=== PATIENT | female | born 1970 | race Caucasian/White ===

== ENCOUNTER 2017-09-13 10:12 | Inpatient (IN) | payer MEDICARE, MEDICAID ==
[~2017-09-13] VITALS: Ht 165.1 cm
--- NOTE | ~2017-09-13 | WRIGHTHP ---
[place], [place] PATIENT HISTORY AND PHYSICAL EXAM NAME: MANUEL SCHAFER [facility] #: [id number] UNIT #: [id number] ROOM: [facility] DOCTOR: GERRY RENO MD BIRTHDATE: [birth year] DOS: 09/13/2017 HISTORY OF PRESENT ILLNESS: The patient is 47 years old. The patient is not known to me. The patient of Dr. Rasheed, comes in stating that she has been slightly disoriented and confused and has not been able to eat anything for the last days because of sore throat. She denies having any chest pains, palpitations, does not have any fever or chills. Does not have any abdominal pain, nausea or emesis. Because she is unable to eat, she was also not taking her insulin and therefore, her blood sugars were pretty high when she came into the Emergency Room. PAST MEDICAL HISTORY: Significant for last hospitalization in 08/2016. Acute cholecystitis and cholecystectomy was performed at that time in 08/2016. The rest of the diagnoses will be: 1. Major depression. 2. Bipolar disorder. 3. Type 2 diabetes mellitus, insulin-dependent, follows with Dr. Sierra. 4. Chronic back pain with lumbar radiculopathy. MEDICATIONS: She is currently on home medications, are bupropion, Adderall, duloxetine, levothyroxine, Lyrica, Neurontin, lorazepam, ibuprofen, Lipitor. SOCIAL HISTORY: Smoker, denies using any alcohol. PHYSICAL EXAMINATION: GENERAL: The patient is awake and alert and oriented, in no distress. VITAL SIGNS: Blood pressure is 116/67, pulse of 72, respirations 18, temperature 97.8. CHEST: Lungs are clear. HEART: Regular. ABDOMEN: Obese, soft, nontender. EXTREMITIES: Without any edema. NEUROLOGIC: No neurological deficits noticed. LABORATORY DATA: Lactic acid is normal at 1.2. WBC count is 16.6, hemoglobin 14.5. Strep screen is positive. Chest x-ray was unremarkable. Comprehensive, glucose 379, BUN 13, creatinine 0.79, sodium 139, potassium 4.3. ASSESSMENT AND PLAN: 1. The patient who presents with sore throat and elevated white cell count with underlying strep throat. The patient is placed on Augmentin. White cell count has come down to 12.2. 2. Type 2 diabetes mellitus, insulin-dependent, poorly controlled with hypoglycemia from the underlying infection, which is definitely improving. She is getting coverage and is advised to restart the insulin pump and the Victoza. 3. Urinary tract infection has been ruled out. 4. Abnormal LFTs, possibly from the underlying infectious process which need to be followed up as an outpatient with repeat LFTs. 5. Hyponatremia. The sodium level has come up after IV fluids. This could be from poorly controlled diabetes. [place], [place] PATIENT HISTORY AND PHYSICAL EXAM NAME: MANUEL SCHAFER UNIT #: [id number] ROOM: [facility] DOCTOR: GERRY RENO MD BIRTHDATE: [birth year] The patient is stable and can be discharged today. Follow up with Dr. Rasheed as an outpatient. GERRY RENO MD CM:HISPHYS:PATIENT HISTORY AND PHYSICAL EXAMINATION [id number] GERRY RENO MD 09/20/17 1110 interface
[~2017-09-13 10:12] MED LIST: ADDERALL15 MG PO; AMOXICILLIN500 MG PO; ATIVAN1 MG PO; AUGMENTIN 875 M1 TAB PO; BLOOD GLUCOSE1 EACH MC; BUPROPION HCL150 M1 PO; CEFADROXIL500 M1 PO; CLARITIN10 M1 PO; CLINDAMYCIN HC300 MG PO; CYCLOBENZAPRINE10 MG PO; CYCLOBENZAPRINE5 M3 PO; DEXTROAMPH SACC20 M1 PO; DULOXETINE HCL60 MG PO; HYDROCODONE BIT1 T11 PO; IBU800 MG PO; LEVOTHYROXIN0.075 M1 PO; LEVOTHYROXIN0.075 MG PO; LIPITOR40 MG PO; MOTRIN800 MG PO; Motrin,Rufen800 MG PO; NAPROSYN500 MG PO; NEURONTIN800 MG PO; NORCO 5-325 TA1 EACH PO; NOVOLOG10 ML SC; Orphenadrine C100 MG PO; SIMVASTATIN20 MG PO; TOBRADEX 0.1%-0.5 ML OPH; TRAMADOL HCL50 MG PO; TRIMOX500 MG PO; TYLENOL WITH CO1 TA1 PO; VICODIN 5/500 505 MG PO; VISTARIL25 M2 PO; ZITHROMAX250 MG PO; ZOFRAN4 MG PO
[2017-09-13 10:21] VITALS: BP 111/66
[2017-09-13 11:28] LABS: BASO # 0.1 10*3/uL (0.0-0.1); BASO % 0.4 % (0.0-1.0); EOS % 0.1 % (1.0-4.0); HEMATOCRIT 41.7 % (37.0-47.0); HEMOGLOBIN 14.5 g/dl (12.0-16.0); LYMPH % 6.2 % (27.0-41.0); MEAN CELL VOLUME 84.9 fl (81.0-99.0); MEAN CORPUSCULAR HGB 29.5 pg (27.0-31.0); MEAN CORPUSCULAR HGB CONC 34.8 g/dl (33.0-37.0); MEAN PLATELET VOLUME 10.9 fl (9.6-12.3); MONO # 0.9 10*3/uL (0.1-1.0); MONO % 5.6 % (3.0-9.0); NEUT # 14.5 10*3/uL (2.3-7.9); NEUT % 87.4 % (47.0-73.0); PLATELET COUNT AUTOMATED 177 10*3/uL (130-400); RED BLOOD COUNT 4.91 10*6/uL (4.10-5.10); RED CELL DISTRI WIDTH 12.4 % (0-14.5); WHITE BLOOD COUNT 16.6 10*3/uL (4.8-10.8)
[2017-09-13 11:38] LABS: ACT PARTIAL THROMBO TIME 24.7 SECONDS (20.8-31.5)
[2017-09-13 11:42] LABS: ALBUMIN 3.5 gm/dl (3.1-4.5); ALKALINE PHOSPHATASE 246 U/L (45-117); BUN 13 mg/dl (7-24); CHLORIDE 97 mmol/L (98-107); CREATININE 0.89 mg/dL (0.55-1.02); LIPASE 65 U/L (73-393); POTASSIUM 4.3 mmol/L (3.5-5.1); SGOT/AST 54 IU/L (3-35); SGPT/ALT 101 U/L (12-78); SODIUM 129 mmol/L (136-145); TOTAL PROTEIN 7.6 gm/dL (6.4-8.2)
[2017-09-13 11:43] LABS: TROPONIN I < 0.015 ng/ml (<0.045)
[2017-09-13 11:48] LABS: BILIRUBIN NEGATIVE (NEGATIVE); BLOOD 1+ (NEGATIVE); CLARITY CLEAR (CLEAR); COLOR YELLOW (YELLOW); GLUCOSE 3+ (NEGATIVE); KETONE 3+ (NEGATIVE); LEUKO ESTERASE NEGATIVE (NEGATIVE); NITRITE NEGATIVE (NEGATIVE); PH 5.5 (5.0-9.0); UROBILINOGEN 0.2 E.U./dl (0.2-1.0)
[2017-09-13 11:59] LABS: EPITHELIAL CELLS 0-2; WBC 0-2 wbc/hpf (0-5)
[2017-09-13 12:40] VITALS: BP 123/68
[2017-09-13 12:45] VITALS: BP 123/68
--- NOTE | 2017-09-13 13:55 | NUR ---
Time: 1239 A 47 year old FEMALE admitted to 5E under services of GERRY GRAHAM MD. Pt. arrived via bed from ER. Chief complaint: METABOLIC ENCEPHALOPATHY, UNCONTROLLED DIABETES MELLITUS. SARA RAMSEY
[2017-09-13] MEDS ORDERED: LYRICA100 M1 PO ×2 (14:46→20:54)
[2017-09-13] MEDS ORDERED: VICTOZA 3-PAK6 MG/ML SC (14:47)
[2017-09-13] MEDS ORDERED: NORCO 5-325 TA1 EACH PO (14:47)
[2017-09-13] MEDS ORDERED: BUPROPION PO (14:57)
[2017-09-13] MEDS ORDERED: CYMBALTA60 MG PO (15:00)
--- NOTE | 2017-09-13 15:47 | NUR ---
SPOKE WITH DR RENO. RECEIVED ORDERS FOR ADMISSION. NEURONTIN, CYMBALTA, ADDERALL, AND BUPROPION CONTINUED. SLIDING SCALE ORDERS AND Q4H BSCHECKS ORDERED, AND ADA 1800 DIET. NS @100/HR AND ROCEPHIN 1GM DAILY ORDERED.
[2017-09-13 16:00] VITALS: BP 127/67
--- NOTE | 2017-09-13 16:43 | NUR ---
PT RECEIVED NORCO FOR PAIN IN THROAT RATED 9/10.
--- NOTE | 2017-09-13 17:30 | NUR ---
PATIENT STATES THAT NORCO HELPED TAKE EDGE OFF PAIN.
[2017-09-13 20:00] VITALS: BP 104/54
--- NOTE | 2017-09-13 20:30 | NUR ---
SITTING AT BEDSIDE, NO ACUTE DISTRESS NOTED. RESPIRATIONS EASY. LUNGS DIMINISHED, CLEAR. PULSE OX 98% RA. IV FLUIDS INFUSING PER ORDER. CALL LIGHT WITHIN REACH. NO VOICED COMPLAINTS.
[2017-09-13] MEDS ORDERED: LEVOTHYROXINE75 MCG PO (20:55)
--- NOTE | 2017-09-13 23:51 | NUR ---
SLEEPING, AWAKENS AND C/O BACK PAIN RATING A 6, CHRONIC IN NATURE. REQUESTED AND RECEIVED NORCO PER PRN ORDER. CALL LIGHT WITHIN REACH. WILL MONITOR FOR EFFECTIVENESS
[2017-09-14] VITALS: BP 118/54
--- NOTE | 2017-09-14 01:00 | NUR ---
EARLIER NORCO APPEARS EFFECTIVE. SLEEPING. RESPIRATIONS EASY. VSS. CALL LIGHT WITHIN REACH
--- NOTE | 2017-09-14 06:00 | NUR ---
SLEPT THROUGHOUT NIGHT WITH NO DISTRESS NOTED. RESPIRATIONS EASY. VSS. CALL LIGHT WITHIN REACH. NO VOICED COMPLAINTS THIS SHIFT
[2017-09-14 07:03] LABS: BASO % 0.2 % (0.0-1.0); EOS # 0.2 10*3/uL (0.0-0.4); EOS % 1.3 % (1.0-4.0); HEMATOCRIT 37.3 % (37.0-47.0); HEMOGLOBIN 12.9 g/dl (12.0-16.0); LYMPH # 1.6 10*3/uL (1.3-4.4); LYMPH % 12.7 % (27.0-41.0); MEAN CELL VOLUME 84.6 fl (81.0-99.0); MEAN CORPUSCULAR HGB 29.3 pg (27.0-31.0); MEAN CORPUSCULAR HGB CONC 34.6 g/dl (33.0-37.0); MEAN PLATELET VOLUME 10.5 fl (9.6-12.3); MONO # 1.1 10*3/uL (0.1-1.0); MONO % 8.8 % (3.0-9.0); NEUT # 9.3 10*3/uL (2.3-7.9); NEUT % 76.5 % (47.0-73.0); PLATELET COUNT AUTOMATED 175 10*3/uL (130-400); RED BLOOD COUNT 4.41 10*6/uL (4.10-5.10); RED CELL DISTRI WIDTH 12.6 % (0-14.5); WHITE BLOOD COUNT 12.2 10*3/uL (4.8-10.8)
--- NOTE | 2017-09-14 07:30 | NUR ---
ASSUMED CARE OF PT AT THIS TIME, RESPS EASY AND NONLABORED WITH NO S/S OF DISTRESS CALL LIGHT WITH IN REACH
[2017-09-14 07:34] LABS: BUN 15 mg/dl (7-24); CHLORIDE 105 mmol/L (98-107); CREATININE 0.69 mg/dL (0.55-1.02); POTASSIUM 3.9 mmol/L (3.5-5.1); SODIUM 137 mmol/L (136-145)
[2017-09-14 08:00] VITALS: BP 116/67
--- NOTE | 2017-09-14 08:00 | NUR ---
PT C/O BACK PAIN RATING 4/10 REQUESTING AND ADMINSITERED NORCO DE PRN PER ORDERS, WILL MONITOR EFFECTS, CALL LIGHT WITH IN REACH
--- NOTE | 2017-09-14 08:30 | NUR ---
Copier Repair Technician in to talk to patient. Patient states lives at HOME with FRIENDS. There are "MANY" steps in the home. Physician: DR ABREU Pharmacy: [facility] Home health services: NONE Patient's level of ADLs: MINIMAL ASSIST Patient has working utilities: YES DME: INSULIN PUMP Follow-up physician's appointment after d/c: PREFERS TO MAKE HER OWN APPT Does patient want to access PORTAL?: Discharge plan HOME. HARRISON DESIR
[2017-09-14] MEDS ORDERED: AUGMENTIN 875875 MG PO (09:04)
--- NOTE | 2017-09-14 10:47 | NUR ---
Discharge instructions reviewed with patient/family. Patient receptive and verbalizes understanding. Follow-up care arranged. Written instructions given to patient/family. DARIN BRADLEY
== END 2017-09-14 10:47 | disposition home or self-care (01) | DRG 152 ==
LOC: ED 10:12 → EDHOLD 12:03 → 5E 12:03
PROVIDERS: Emergency Medicine; ADMIT Internal Medicine
DX: J02.0 Streptococcal pharyngitis (principal); G93.41 Metabolic encephalopathy; E87.1 Hypo-osmolality and hyponatremia; E11.65 Type 2 diabetes mellitus with hyperglycemia; R94.5 Abnormal results of liver function studies; F41.9 Anxiety disorder, unspecified; E66.9 Obesity, unspecified; F17.200 Nicotine dependence, unspecified, uncomplicated; M54.9 Dorsalgia, unspecified; G89.29 Other chronic pain; F31.9 Bipolar disorder, unspecified; Z91.041 Radiographic dye allergy status; Z91.018 Allergy to other foods; Z79.899 Other long term (current) drug therapy; Z79.4 Long term (current) use of insulin; Z98.51 Tubal ligation status; Z98.891 History of uterine scar from previous surgery; Z80.8 Family history of malignant neoplasm of other organs or systems; Z90.49 Acquired absence of other specified parts of digestive tract; Z68.29 Body mass index [BMI] 29.0-29.9, adult

== ENCOUNTER 2017-12-17 19:11 | Emergency (ER) | payer MEDICARE, MEDICAID ==
[~2017-12-17] VITALS: Ht 165.1 cm; Wt 80.7 kg
[2017-12-17 19:11] VITALS: BP 124/71
[~2017-12-17 19:11] MED LIST changes: +AUGMENTIN 875875 MG PO; +BUPROPION PO; +CYMBALTA60 MG PO; +LEVOTHYROXINE75 MCG PO; +LYRICA100 M1 PO; +VICTOZA 3-PAK6 MG/ML SC
[2017-12-17] MEDS ORDERED: CHLORZOXAZONE500 M2 PO (19:54)
[2017-12-17] MEDS ORDERED: CLINDAMYCIN150 MG PO (20:31)
== END 2017-12-17 20:34 | disposition home or self-care (01) ==
LOC: ED 19:11
DX: L02.11 Cutaneous abscess of neck (principal); Z98.51 Tubal ligation status; Z98.890 Other specified postprocedural states; Z79.899 Other long term (current) drug therapy; Z91.013 Allergy to seafood

== ENCOUNTER 2018-03-10 19:27 | Inpatient (IN) | payer MEDICARE, MEDICAID ==
[~2018-03-10] VITALS: Ht 165.1 cm; Wt 89.9 kg
--- NOTE | ~2018-03-10 | PR ---
[place], [place] PROGRESS NOTE NAME: MANUEL SCHAFER UNIT #: [id number] ROOM: 506 DOCTOR: GERRY RENO MD BIRTHDATE: [birth year] DOS: Fill in the blank with Dr. Man. GERRY RENO MD CM:PNTRANS [id number] GERRY RENO MD 03/23/18 1618 interface
--- NOTE | ~2018-03-10 | PR ---
[place], [place] PROGRESS NOTE NAME: MANUEL SCHAFER [facility] #: [id number] UNIT #: [id number] ROOM: 506 DOCTOR: GERRY RENO MD BIRTHDATE: [birth year] DOS: SUBJECTIVE: The patient is not having any new complaints. OBJECTIVE: VITAL SIGNS: Graphic trend shows a pressure 96/36, pulse of 82, respirations 18, temperature 98.3. LUNGS: Clear. HEART: Regular. ABDOMEN: Soft. EXTREMITIES: Without any edema. ASSESSMENT AND PLAN: Acute exacerbation of chronic obstructive pulmonary disease, improved and stable. The patient is not on any IV steroids or antibiotics here. The plan therefore is to discharge her to home today to follow up as an outpatient with the PCP. GERRY RENO MD CM:PNTRANS [id number] GERRY RENO MD 03/12/18 1356 interface
--- NOTE | ~2018-03-10 | WRIGHTHP ---
[place], [place] PATIENT HISTORY AND PHYSICAL EXAM NAME: MANUEL SCHAFER [facility] #: [id number] UNIT #: [id number] ROOM: 506 DOCTOR: CRISTINE ABREU MD BIRTHDATE: [birth year] DOS: 03/10/2018 HISTORY OF PRESENT ILLNESS: The patient is a 48-year-old female with a past medical history of: 1. Uncontrolled type 2 diabetes mellitus, insulin requiring. The patient follows up with Dr. Sierra, world language teacher. 2. Chronic back pains and lumbar spondylosis. 3. Bipolar disorder. 4. Major depression, recurrent, moderate. 5. Nicotine smoke dependence, 1 pack of cigarettes a day. 6. Hypothyroidism. 7. Attention deficit disorder. The patient presented to the Emergency Department with increasing complaints of shortness of breath, wheezing, cough and was diagnosed as having acute exacerbation of asthma and COPD. The patient still smokes 1 pack of cigarettes a day. After initial treatment with Solu-Medrol, oxygen, and antibiotic, she was recommended for admission on a monitored bed. The patient says that her breathing started to improve with treatment and no chest pain, no other GI or urinary symptoms. REVIEW OF SYSTEMS: LUNGS: Significant wheezing and shortness of breath. GASTROINTESTINAL: No nausea, vomiting, diarrhea, constipation. CARDIOVASCULAR: No chest pains or palpitations. FAMILY HISTORY: Noncontributory. SOCIAL HISTORY: The patient still smokes 1 pack of cigarettes a day. Denies any alcohol or drug abuse. HOME MEDICATIONS: Ibuprofen, Lyrica, levothyroxine, amphetamine, Cymbalta. ALLERGIES: IODINE and SHRIMP. PHYSICAL EXAMINATION: GENERAL: Alert and oriented times 3, in no visible distress. HEENT AND NECK: Extraocular movements are intact. Sclerae are anicteric. Oral mucosa is moist and clean. No obvious facial weakness. Neck is supple without any lymphadenopathy. No thyromegaly. No JVD. No carotid arterial bruits. LUNGS: Decreased breath sounds and significant expiratory wheezing all over. CARDIOVASCULAR SYSTEM: Heart rate is regular in rate and rhythm. S1 and S2 normally audible. No significant murmur or any other abnormal cardiac sounds. ABDOMEN: Soft, nontender. No obvious organomegaly. Bowel sounds are present. No obvious herniation. EXTREMITIES: Without significant cyanosis or edema. Warm to touch. CENTRAL NERVOUS SYSTEM: Alert and oriented x 3. Cranial nerves II-XII are intact. Speech is normal. The patient is able to move all extremities. Normal muscle strength. Deep tendon reflexes are equal on both sides. Plantars were downgoing. [place], [place] PATIENT HISTORY AND PHYSICAL EXAM NAME: MANUEL SCHAFER UNIT #: [id number] ROOM: 506 DOCTOR: CRISTINE ABREU MD BIRTHDATE: [birth year] IMPRESSION: 1. Acute asthmatoid wheezing and acute exacerbation of chronic obstructive pulmonary disease with continued nicotine abuse. The patient with acute respiratory failure, being treated with oxygen, bronchodilators, inhaled Pulmicort and IV Solu-Medrol, which is being stopped because of her elevated sugars. The patient's breathing has started improving, but she still has significant amount of wheezing and decreased breath sounds. I will closely monitor her on a step-down monitored bed. 2. Uncontrolled type 2 diabetes mellitus with poor compliance with diet and treatment. Also, the patient is a brittle diabetic and uses insulin pump given to her by world language teacher, Dr. Sierra. The patient will continue to use insulin pump and I am discontinuing her Solu-Medrol, instead just treat her with bronchodilators, oxygen and inhaled corticosteroids. The patient's breathing is already improving. 3. Major depression, recurrent, moderate, being treated with Cymbalta. 4. Bipolar disorder. The patient will be continued on Wellbutrin. 5. Attention deficit disorder, treated with amphetamine, which is being continued. 6. Nicotine smoke dependence. The patient started on nicotine patch and she is being encouraged to stop smoking cigarettes. 7. Chronic back pains and lumbar spondylosis, treated with ibuprofen. CRISTINE ABREU MD CM:HISPHYS:PATIENT HISTORY AND PHYSICAL EXAMINATION [id number] CRISTINE ABREU MD 03/11/18 1315 interface
--- NOTE | ~2018-03-10 | DS ---
[place], [place] DISCHARGE SUMMARY NAME: MANUEL SCHAFER [facility] #: [id number] UNIT #: [id number] ROOM: 506 DOCTOR: GERRY RENO MD BIRTHDATE: [birth year] DOS: 03/12/2018 DISCHARGE DIAGNOSES: 1. Acute exacerbation of chronic obstructive pulmonary disease. 2. Steroid-induced hyperglycemia. 3. Morbid cigarette smoker. 4. Major depression, moderate, recurrent. 5. Bipolar disorder. 6. Attention deficit disorder. HOSPITAL COURSE: This patient is 48 years old, comes in with complaints of difficulty breathing. Please refer to H and P dictated by Dr. Queen for details. Blood sugar went up with steroids, so the IV steroids were discontinued. The patient was not placed on any other medications other than Pulmicort. She was not given any p.o. steroids. She was given IV antibiotics with Rocephin. This morning, the patient is stable and is not having any complaints, so the plan is to discharge her to home today. Follow up as an outpatient with Dr. Man. DISCHARGE MEDICATIONS: Breathing treatments q.4 hours and then home medications along with Augmentin 875 twice a day for 7 days. GERRY RENO MD CM:DISCHARG [id number] GERRY RENO MD 03/23/18 1140 interface
[~2018-03-10 19:27] MED LIST changes: +CHLORZOXAZONE500 M2 PO; +CLINDAMYCIN150 MG PO
[2018-03-10 19:29] VITALS: BP 125/91
[2018-03-10 20:27] LABS: BASO # 0.1 10*3/uL (0.0-0.1); EOS # 0.2 10*3/uL (0.0-0.4); EOS % 3.9 % (1.0-4.0); HEMATOCRIT 46.6 % (37.0-47.0); HEMOGLOBIN 15.9 g/dl (12.0-16.0); LYMPH # 2.5 10*3/uL (1.3-4.4); LYMPH % 40.5 % (27.0-41.0); MEAN CORPUSCULAR HGB 29.3 pg (27.0-31.0); MEAN CORPUSCULAR HGB CONC 34.1 g/dl (33.0-37.0); MEAN PLATELET VOLUME 10.6 fl (9.6-12.3); MONO # 0.5 10*3/uL (0.1-1.0); MONO % 8.4 % (3.0-9.0); NEUT # 2.9 10*3/uL (2.3-7.9); PLATELET COUNT AUTOMATED 213 10*3/uL (130-400); RED BLOOD COUNT 5.42 10*6/uL (4.10-5.10); WHITE BLOOD COUNT 6.2 10*3/uL (4.8-10.8)
[2018-03-10 20:39] LABS: BUN 17 mg/dl (7-24); CHLORIDE 103 mmol/L (98-107); CREATININE 0.99 mg/dL (0.55-1.02); POTASSIUM 3.8 mmol/L (3.5-5.1); SODIUM 140 mmol/L (136-145)
[2018-03-10 21:34] VITALS: BP 116/71
[2018-03-10 22:30] VITALS: BP 120/76
[2018-03-10] MEDS ORDERED: IBU800 MG PO (22:31)
[2018-03-10] MEDS ORDERED: NORCO 5-325 TA1 EACH PO (22:32)
[2018-03-10] MEDS ORDERED: Wellbutrin Sr100 MG PO (22:35)
[2018-03-10] MEDS ORDERED: LIPITOR40 MG PO (22:36)
[2018-03-10] MEDS ORDERED: VICTOZA 2-0.6 MG/0.1 SC (22:37)
[2018-03-10] MEDS ORDERED: NOVOLOG100 UNIT/1 SQ (23:18)
[2018-03-10] MEDS ORDERED: CARTRIDGE STAM1 EACH SQ (23:19)
[2018-03-11] VITALS: BP 119/65
[2018-03-11 08:00] VITALS: BP 110/64
[2018-03-11 12:00] VITALS: BP 128/68
[2018-03-11 16:00] VITALS: BP 114/78
[2018-03-11 20:00] VITALS: BP 126/65
[2018-03-12 00:31] VITALS: BP 96/36
[2018-03-12 08:00] VITALS: BP 118/53
[2018-03-12] MEDS ORDERED: DUONEB 3 MG/3 ML3 M1 NEB (08:05)
== END 2018-03-12 11:24 | disposition home or self-care (01) | DRG 193 ==
LOC: ED 19:27 → EDHOLD 21:00 → 5E 21:00
PROVIDERS: Hospitalist
DX: J18.9 Pneumonia, unspecified organism (principal); J96.00 Acute respiratory failure, unspecified whether with hypoxia or hypercapnia; J44.0 Chronic obstructive pulmonary disease with (acute) lower respiratory infection; F33.1 Major depressive disorder, recurrent, moderate; J45.901 Unspecified asthma with (acute) exacerbation; E11.65 Type 2 diabetes mellitus with hyperglycemia; J44.1 Chronic obstructive pulmonary disease with (acute) exacerbation; F41.9 Anxiety disorder, unspecified; M47.896 Other spondylosis, lumbar region; E03.9 Hypothyroidism, unspecified; F17.210 Nicotine dependence, cigarettes, uncomplicated; F98.8 Other specified behavioral and emotional disorders with onset usually occurring in childhood and adolescence; T38.0X5A Adverse effect of glucocorticoids and synthetic analogues, initial encounter; Z79.84 Long term (current) use of oral hypoglycemic drugs; Z91.041 Radiographic dye allergy status; Z98.51 Tubal ligation status; Z88.8 Allergy status to other drugs, medicaments and biological substances; Z98.891 History of uterine scar from previous surgery; Z80.9 Family history of malignant neoplasm, unspecified; Y92.89 Other specified places as the place of occurrence of the external cause; Z91.11 Patient's noncompliance with dietary regimen

== ENCOUNTER → 2018-03-16 | Outpatient (CLI) | payer MEDICARE, MEDICAID ==
[~2018-03-16] MED LIST changes: +CARTRIDGE STAM1 EACH SQ; +DUONEB 3 MG/3 ML3 M1 NEB; +NOVOLOG100 UNIT/1 SQ; +VICTOZA 2-0.6 MG/0.1 SC; +Wellbutrin Sr100 MG PO
== END | disposition home or self-care (01) ==
LOC: RAD 15:26
DX: J44.9 Chronic obstructive pulmonary disease, unspecified (principal); R53.83 Other fatigue

== ENCOUNTER 2018-07-19 16:12 | Inpatient (IN) | payer MEDICARE, MEDICAID ==
[~2018-07-19] VITALS: Ht 167.6 cm; Wt 86.7 kg
--- NOTE | ~2018-07-19 | EKG ---
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
--- NOTE | ~2018-07-19 | CON ---
[place], [place] REPORT OF CONSULTATION [id number] UN[facility] #: [id number] ROOM: 526 DOCTOR: DOYLE SILVA MD BIRTHDATE: [birth year] DOS: 07/20/2018 CRITICAL CARE EVALUATION AND MANAGEMENT CONSULTATION REQUESTED BY: Dr. Queen. HISTORY OF PRESENT ILLNESS: History is extremely limited for this patient because of the patient's inability to give any history as the patient noted drowsy with change in mental status. History contained documented essentially is the assessment by the other physician notes and the nurse's notes. A 48-year-old white female patient with history of type 1 insulin-dependent diabetes mellitus. The patient has been treated with insulin pump. The insulin pump has not been working. She has been brought to the hospital with severe confusional status with increased somnolence. Her sugar has been running high as per family members. As per note which was done in the Emergency Room, the patient has not been listening to the family members of following any instructions about that. The patient has been also noted symptoms of nausea, vomiting, and progressive increased lethargy occurring for the past couple of days, which has been noted worsening. She presented to the Emergency Room. She has been assessed by the ER physician and noted with the diagnosis of acute diabetic ketoacidosis. The patient was started on the treatment for that. The pH was noted 7.25 at that time and the anion gap was calculated as 26 with albumin corrected. The patient was also noted positive serum ketones. The arterial blood gas, pH was noted 7.00. She has been hospitalized for further medical management with acute diabetic ketoacidosis. The patient has received intravenous normal saline initial couple of hours and later on fluid switched to D5 rather normal saline with potassium chloride and later on switched to the D5W infusion, potassium chloride supplementation according to protocol. The patient was noted with improvement in the venous pH with improvement in the metabolic acidosis and diabetic ketoacidosis with improvement in the anion gap. The patient still remains lethargic and quickly fall asleep, upon vocal commands that she has been assessed this morning, she has not been able to give me any history. She does wake up and answer question with couple of words and then quickly falls asleep. Does not have signs of respiratory distress this morning. REVIEW OF SYSTEMS: Review of systems cannot be completed since the patient was noted with severe lethargy with the sleepiness this morning of assessment. PAST MEDICAL HISTORY: 1. The patient was noted with type 1 diabetes mellitus. 2. Recent infection with a prescription of Augmentin noted; however the details were unknown. 3. History of hypercholesterolemia. 4. Hypothyroidism. 5. History reported for ADHD and bipolar disorder in the nurse's notes. PAST SURGICAL HISTORY: Reported as: [place], [place] REPORT OF CONSULTATION NAME: MANUEL SCHAFER UNIT #: [id number] ROOM: 526 DOCTOR: BALBINA POPE MD,DOYLE BIRTHDATE: [birth year] 1. Cholecystectomy. 2. Tubal ligation. 3. Three C-sections. FAMILY HISTORY: The history about the parents was unknown. CURRENT MEDICATIONS: Administered noted as use of Cymbalta, levothyroxine, and intravenous Rocephin. Intravenous flow for the patient was given as potassium chloride added in the D5W. PHYSICAL EXAMINATION: GENERAL: A 48-year-old white female. She was noted significantly lethargic at this time open her eyes, but quickly falls asleep. VITAL SIGNS: Height were recorded with the nursing staff with height of 5 feet 6 inches, weight 197 pounds, BMI 31.8. Temperature noted 101 degree Fahrenheit, normal temperature. The respiratory rate range between 14-18, heart rate 97, blood pressure 106/61-127/67. Pulse oxygen saturation on room air noted 98% saturation. HEENT: Limited exam. However, the oral mucosa noted significantly dry still at the present time. Head was atraumatic. Eyes nonicterus. CARDIOVASCULAR: S1, S2 is audible. LUNGS: Without any wheezing or crackles at present time. ABDOMEN: Soft, nontender. Bowel sounds are present. EXTREMITIES: The patient noted without acute edema. CENTRAL NERVOUS SYSTEM: Change in mental status. Further examination could not be performed; however, the patient noted spontaneous movement in upper and the lower extremities. MUSCULOSKELETAL: Without acute deformity. VISIBLE SKIN: No lesions or rashes. LABORATORY DATA: The patient's arterial blood gas on 07/19/2018, pH of 7.00, pCO2 of 17.5, pO2 of 140. Lactic acid 2.7 followup 1.4. The ketone level is noted in the blood yesterday at 116 dilution. Chest x-ray that was done was noted first without any acute infiltration secondary multilumen catheter inserted successfully. The patient has been venous access yesterday after admission to Intensive Care Unit admission. CMP for the patient, glucose of 366, BUN 41, creatinine 1.96, sodium 134, and potassium was normal, CO2 was 5. Magnesium 2.5. PT/PTT that was done yesterday was normal. CBC that was done yesterday, WBC count 21.4, hemoglobin and hematocrit was normal. BMP that was repeated at 2133 hours, glucose of 216, BUN 44, creatinine 1.83, CO2 was 9. Anion gap calculated at that time with anion gap was noted as 28. The venous pH that was done this morning, the patient at 09:52 was 7.30, alcohol noted less than 3, which I ordered the urinary drug screen was obtained was noted greater than 1000 of amphetamines, which the patient is on home medication. The BMP was noted this morning, sodium 138, chloride 111, anion gap between 12-14. IMPRESSION: 1. The patient who has been noted persistent mental status changes with the resolution of acute diabetic ketoacidosis as well as acute on chronic injury. 2. The patient with possibility of diabetic nephropathy be considered [place], [place] REPORT OF CONSULTATION [facility]: [facility] [id number] UN[facility] #: [id number] ROOM: 526 DOCTOR: BALBINA POPE MD,[facility] BIRTHDATE: [birth year] longstanding type 1 diabetes mellitus. 3. Urinary tract infection. The patient was possibly considered in fact with lack of insulin usage resulting in diabetic ketoacidosis. 4. Rule out cause of mental status change including consideration for the acute viral or bacterial meningitis. 5. History of hypothyroidism as well. PLAN OF MANAGEMENT: The patient could be resumed her insulin long-acting. The CT scan of the head will be obtained negative, proceed with the lumbar puncture, coverage started for the medical management of the meningitis at her age with the use of vancomycin, Rocephin 1 gram b.i.d., and also acyclovir. Monitoring other status after the lumbar puncture, a decision about the change in antibiotic will be done. Monitor all the culture results, which has been taken during this hospitalization. Oral intubation could be started as long would be noted awake. The patient follow vocal commands and thirsty. Intravenous fluid will be adjusted according to the need. Monitoring the urine output closely as well. Urine output was noted essentially 650 mL in the last 12 hours with close monitoring to be done to maintain a good urinary output. Avoid any fluid overload because of the possibly chronic kidney disease. Usual care, other supportive plan of therapy, care plan and management. Additional changes in treatment will be made based on progression of the illness. The DVT prophylaxis will be given in the form of the Lovenox. Discontinue Cymbalta that could also resulting in increased drowsiness as well and could be resumed after the patient achieves normal mental status. Total time in pulmonary critical evaluation and management was 50 minutes. DOYLE MORTENSEN MD CM:CONSTR:REPORT OF CONSULTATION 1301 08/09/18 0829 interface
--- NOTE | ~2018-07-19 | PR ---
[place], [place] PROGRESS NOTE NAME: MANUEL SCHAFER [facility] #: [id number] UNIT #: [id number] ROOM: [facility] DOCTOR: BALBINA POPE MD,DOYLE BIRTHDATE: [birth year] DOS: 07/21/2018 PULMONARY PROGRESS NOTE SUBJECTIVE: The patient was noted comfortable with gradual improvement and the wakefulness noted. The patient was not noted fully probably at the baseline, but shows improvement in the mental status. The patient had lumbar puncture done yesterday that was noted without any evidence or suspicion of meningitis. She has been continuing antibiotics from yesterday. The acyclovir was discontinued per recommendation of the Infectious Disease specialist. She has been started on insulin coverage as well. The patient stated that she is hungry and was asking for food. She was also complaining of thirst. Intravenous fluids continued for the patient from yesterday because of lack of oral intake. The patient without any diabetic ketoacidosis in the last 18 hours. The acute kidney injury was noted secondary to diabetic ketoacidosis, dehydration and intravascular volume depletion. Prerenal also resolved. REVIEW OF SYSTEMS: Otherwise noted as normal. OBJECTIVE: VITAL SIGNS: Normal temperature, respiratory rate 12, heart rate of 86, blood pressure 160/76, pulse ox saturation on room air 98% saturation. HEENT: Head was atraumatic. Eyes nonicterus. NECK: Supple. CARDIOVASCULAR: S1, S2 is audible. LUNGS: Without any wheeze or crackles. ABDOMEN: Soft, nontender. EXTREMITIES: Without any acute edema. VISIBLE SKIN: No lesions or rashes. CENTRAL NERVOUS SYSTEM: Noted fully intact. The patient noted awake, alert, oriented x 3. LABORATORY DATA: BMP today; glucose 324, BUN and creatinine was normal. Impedance pH was 3.9, which was normal. Culture of the CSF for the patient noted no bacterial growth. Influenza A and B, nasal washing antigens were noted as negative. A total of 9 mL of lumbar puncture fluid was sent to the lab. Only 5 WBCs were noted. A 2000 RBCs were seen. Glucose was elevated at 159. Protein noted in the normal range. IMPRESSION: 1. Change in mental status, most likely metabolic encephalopathy. There was no clinical suspicion of acute meningitis. CT scan of the head, which was also completed yesterday without any structural abnormalities. 2. History of type 1 diabetes mellitus as well with nonadherence with the treatment and possible malfunction of the insulin pump. PLAN OF TREATMENT: The coverage of the blood glucose will be continued with the short-acting insulin. The patient could be started on long-acting insulin at this time. Oral intake as tolerated will be continued. Monitor mental status. Based on the current assessment, the patient does not have any signs of sepsis [place], [place] PROGRESS NOTE NAME: MANUEL SCHAFER UNIT #: [id number] ROOM: [facility] DOCTOR: BALBINA POPE MD,DOYLE BIRTHDATE: [birth year] with meningitis. All the antibiotic will be completely discontinued. Mistry catheter was ordered to be removed. Intravenous fluids were completely discontinued. Monitor for any additional temperature spikes and reassessment at that time and consideration of antibiotic if necessary. Viral syndrome would be considered causing the temperature elevation for this patient, which seemed to be resolving. DOYLE MORTENSEN MD CM:PNTRANS 1302 DOYLE POPE MD 07/22/185 interface
--- NOTE | ~2018-07-19 | PR ---
[place], [place] PROGRESS NOTE NAME: MANUEL SCHAFER [facility] #: [id number] UNIT #: [id number] ROOM: [facility] DOCTOR: CRISTINE ABREU MD BIRTHDATE: [birth year] DOS: 07/22/2018 SUBJECTIVE: The patient is starting to feel better. She is alert and oriented and starting to get stronger. OBJECTIVE: VITAL SIGNS: Blood pressure 135/84, heart rate 78 beats per minute, breathing 20 times per minute, temperature 98.5 degrees Fahrenheit. GENERAL APPEARANCE: The patient is alert and oriented x 3, in no visible distress. HEENT AND NECK: Exam within normal limits. CARDIOVASCULAR SYSTEM: Heart rate is regular in rate and rhythm. S1 and S2 normally audible. LUNGS: Clear to auscultation. ABDOMEN: Soft, nontender. No obvious organomegaly. Bowel sounds are present. EXTREMITIES: Without significant cyanosis or edema. IMPRESSION: 1. The patient who presented with diabetic ketoacidosis and remains in the ICU, is now being transferred to a step-down unit because she is feeling better. Her blood sugars are now ranging between 180 to as high as 410, but her diabetic ketoacidosis has completely resolved. I am starting her on 50 units of Lantus insulin and her insulin pump is at her home, she is not using it. 2. The patient with mental status change from acidosis and diabetic ketoacidosis has resolved. She is feeling much better. 3. The patient's attention deficit disorder, uses Adderall. 4. Major depression, recurrent, moderate, treated and controlled with Cymbalta. 5. Generalized weakness. The patient working with OT and PT now. CRISTINE ABREU MD CM:PNTRANS 29 [phone] CRISTINE ABREU MD 07/22/181856 interface
--- NOTE | ~2018-07-19 | CON ---
[place], [place] REPORT OF CONSULTATION NAME: [facility] [id number] UN[facility] #: [id number] ROOM: [facility]- DOCTOR: SERGE VIZCAINO DO BIRTHDATE: [birth year] DOS: PULMONARY CRITICAL CARE EVALUATION REASON FOR CONSULTATION: Diabetic ketoacidosis and metabolic encephalopathy. HISTORY OF PRESENT ILLNESS: This is a 48-year-old female who presented to [facility] after increased lethargy and nausea and vomiting. The patient's family came and saw her and noted she was not acting herself and decided to call EMS and have her brought to the hospital. In the ER, she was found to be in DKA. Central line was placed in the ER and insulin drip was started. The patient is known to be noncompliant diabetic, occasionally having very high blood sugars. The patient was admitted to the ICU for further management and Critical Care was consulted. REVIEW OF SYSTEMS: Could not be completed due to the patient's mental status at this time. PAST MEDICAL HISTORY: 1. Insulin-dependent diabetes. 2. COPD. 3. Tobacco abuse, current smoker. 4. Major depression, bipolar and adult ADHD. 5. Hypothyroidism. SOCIAL HISTORY: The patient is a smoker according to her sister. The patient's UDS was positive for amphetamines HOME MEDICATIONS: 1. Atorvastatin 40. 2. Bupropion 450 mg. 3. Dextroamphetamine 20 mg b.i.d. 4. Duloxetine 60 mg per day. 5. Ibuprofen 800 mg t.i.d. p.r.n. 6. Levothyroxine 75 mcg per day. 7. Claritin 10 mg per day. 8. Lyrica 100 mg q. 8 hours. 9. Victoza 1.8 mg subcutaneous daily. 10. Insulin pump. PHYSICAL EXAMINATION: VITAL SIGNS: Temperature 97.6, pulse rate 95, respiratory rate 15, blood pressure 115/65, pulse oximetry 98% on room air. GENERAL: A 48-year-old female, in moderate distress, arousable. LUNGS: Diminished breath sounds bilaterally. No rales, rhonchi or wheezes. HEART: Regular rate and rhythm. No murmurs. ABDOMEN: Obese, soft, nontender. EXTREMITIES: No cyanosis, edema or erythema. NEUROLOGIC: The patient follows commands, but does not answer questions appropriately. The patient is unable to tell us where she is. No obvious [place], [place] REPORT OF CONSULTATION NAME: MANUEL SCHAFER [facility]: [id number] UNIT #: [id number] ROOM: [facility] DOCTOR: SERGE VIZCAINO DO BIRTHDATE: [birth year] neurologic deficits. ASSESSMENT AND PLAN: 1. Diabetic ketoacidosis. The patient is on insulin drip that is being titrated off and subcutaneous insulin will be started as appropriately. The patient's fluids will be administered. We will switch to D5 half normal saline until the patient is eating. 2. Metabolic encephalopathy. The patient had a head CT this morning that was negative for acute pathology. The patient will go for a lumbar puncture to rule out meningitis versus encephalitis. The patient will be started on ceftriaxone 1 gram b.i.d., vancomycin pharmacy to dose and acyclovir pharmacy to dose. Infectious Disease will be consulted for further management. 3. Urinalysis positive for urinary tract infection. Urine culture pending. 4. The patient will be given BiPAP at night and while sleeping. Samy Vizcaino DO DOYLE MORTENSEN MD CM:CONSTR:REPORT OF CONSULTATION 1637 07/20/18 1925 interface
--- NOTE | ~2018-07-19 | WRIGHTHP ---
[place], [place] PATIENT HISTORY AND PHYSICAL EXAM NAME: MANUEL SCHAFER [facility] #: [id number] UNIT #: [id number] ROOM: [facility] DOCTOR: GERRY RENO MD BIRTHDATE: [birth year] DOS: 07/19/2018 HISTORY OF PRESENT ILLNESS: The patient is 48 years old, known to me, patient of Dr. Queen, was brought into the Emergency Room yesterday with complaints of increasing nausea, vomiting and confusion. She apparently got a flu shot 5 days prior to this and then family thought it was just a viral illness. She has not been eating anything for the last 2-3 days, but was still getting insulin, using the insulin pump. She was sleeping most of the time and the family found it very difficult to arouse her. PAST MEDICAL HISTORY: Significant for: 1. Type [address] Dey and is on an insulin pump. 2. COPD. 3. Continued nicotine abuse. 4. Major depression, moderate, recurrent. 5. Bipolar disorder. 6. Attention deficit disorder. MEDICATIONS: That she is currently on are: Atorvastatin 40 daily, bupropion 450 mg daily, Adderall 20 b.i.d., duloxetine 60 daily, ibuprofen 800 t.i.d., levothyroxine 75 mcg, loratadine 10 daily, Lyrica 100 mg q. 8 and Victoza 1.8 subcutaneous insulin pump. SOCIAL HISTORY: Smokes about a pack of cigarettes. Denies using any alcohol. Lives with her friend. Children are grown. She is not . Most of the history is obtained from her sister who was in the room. PHYSICAL EXAMINATION: ITAL SIGNS: Graphic trend shows a pressure 106/61, pulse of 97, respirations 16, temperature 101. LUNGS: Diminished breath sounds. HEART: Regular. Heart rate in the low 90s. ABDOMEN: Obese, soft, nontender. EXTREMITIES: Without any edema. She does wake up acute care surgeon, but easily slips into sleep. She does try to answer questions appropriately. She remembers where she is, knows that her sister is with her. ASSESSMENT AND PLAN: 1. Diabetic ketoacidosis. The patient is placed on IV fluids. We will add bicarbonate to her IV this afternoon that she is still acidotic. Blood sugars have already started coming down. We will start cutting back on the insulin drip. 2. Increased somnolence, possibly from multifactorial. She did spike a fever. Dr. Lima was consulted and felt that the meningitis need to be ruled out. CSF studies were ordered and so far it is pending, except for the glucose, which is 159 and protein is 32.9, on vancomycin, acyclovir and ceftriaxone. 3. Moderate depression, bipolar disorder and attention deficit hyperactive disorder on multiple medications, which also may be causing increased somnolence, right now, none of those meds will be prescribed. 4. Urinalysis refluxed for a urine culture. Awaiting culture report. Overall, [place], [place] PATIENT HISTORY AND PHYSICAL EXAM [facility]: [id number] #: [id number] [facility]OM: [facility] DOCTOR: GERRY RENO MD BIRTHDATE: [birth year] prognosis remains guarded at this time. Discussed with the patient's sister in detail. GERRY RENO MD CM:HISPHYS:PATIENT HISTORY AND PHYSICAL EXAMINATION [id number] [id number] GERRY RENO MD 07/20/18 1529 interface
--- NOTE | ~2018-07-19 | DS ---
[place], [place] DISCHARGE SUMMARY NAME: MANUEL SCHAFER UNIT #: [id number] ROOM: 526 DOCTOR: CRISTINE ABREU MD BIRTHDATE: [birth year] DOS: 07/24/2018 DISCHARGE DIAGNOSES: 1. Uncontrolled type 2 diabetes mellitus, insulin requiring. 2. Diabetic ketoacidosis, resolved. 3. Major depression, recurrent, moderate. 4. Adult attention deficit disorder. 5. Chronic obstructive pulmonary disease. 6. Nicotine smoke dependence. 7. Bipolar disorder. HOSPITAL COURSE: The patient presented to the Emergency Department at [facility] with diabetic ketoacidosis and she was hydrated and admitted to ICU with altered mental status. The patient's mental status improved with hydration and treatment with IV insulin. As patient's condition improved, she was put down on a step-down monitored bed and started on long and short-acting insulins. Now, the patient's blood sugars are staying in 100, which are better than she was on an insulin pump. I plan to continue her on present regimen rather than her insulin pump that she is not able to handle very well because she has attention deficit disorder issues. ADD treated with Adderall, which is being continued. Mixed hyperlipidemia, treated with atorvastatin, continued. Hypothyroidism, treated with levothyroxine. Pollen allergies treated and controlled with loratadine. Nicotine smoke dependence. The patient encouraged to stop smoking cigarettes. LABORATORY DATA: Normal serum electrolytes, BUN and creatinine. Hemoglobin 12, white cell count of 4600, normal platelets. Blood cultures negative. DISCHARGE MANAGEMENT: The patient is to Lantus insulin 50 units subcutaneous daily and 10 units of short-acting insulin with every meal, Lipitor 40 mg a day, Wellbutrin XL 450 mg daily, Victoza 1.8 mg daily, nicotine patch 14 mg daily, levothyroxine 75 mcg daily and Adderall 20 mg b.i.d. [place], [place] DISCHARGE SUMMARY NAME: MANUEL SCHAFER UNIT #: [id number] ROOM: 526 DOCTOR: CRISTINE ABREU MD BIRTHDATE: [birth year] CRISTINE ABREU MD CM:ALEKSANDRA 50 [phone] CRISTINE ABREU MD 07/24/181934 interface
--- NOTE | ~2018-07-19 | PR ---
[place], [place] PROGRESS NOTE NAME[id number] #: [id number] ROOM: [facility]- DOCTOR: GERRY RENO MD BIRTHDATE: [birth year] DOS: 07/21/2018 SUBJECTIVE: The patient is much more awake and alert and oriented. Answers questions appropriately. The only complaint that she has is neck pain from the IJ. OBJECTIVE: VITAL SIGNS: Blood pressure is 109/61, pulse of 76, respirations 15, and temperature 98.6. LUNGS: Diminished breath sounds, clear. HEART: Regular. ABDOMEN: Obese, soft, nontender. EXTREMITIES: Without any edema. LABORATORY DATA: CSF studies are fairly within normal limits except for lymphocytes low at 29, neutrophils 65, WBC count is 5, RBC 2000. Glucose 159 and protein is 32.9, which were all within normal limits. Labs this morning: WBC count is 7.4, hemoglobin 11.5, hematocrit 32.4, platelets 146. BMP: Glucose 321, BUN 18, creatinine 0.96, sodium 142, potassium 4.1, chloride 112, and bicarbonate 24. ASSESSMENT AND PLAN: 1. Change in mental status, which is resolved. This most likely is from multiple psych medications that she is on. We will restart Wellbutrin and Adderall today. We will lay off Lyrica for now as well as Cymbalta. 2. Diabetic ketoacidosis, which is resolved. The patient will be started on Victoza as well as coverage scale. The patient also is ordered a diet. 3. Aseptic meningitis, meningitis has been ruled out. 4. Adult failure to thrive. Get PT, OT consultation to see whether she can start ambulating. GERRY RENO MD CM:PNTRANS 6 GERRY RENO MD 07/21/18917 interface
--- NOTE | ~2018-07-19 | PR ---
[place], [place] PROGRESS NOTE NAME: MANUEL SCHAFER UNIT #: [id number] ROOM: [facility] DOCTOR: DOYLE SILVA MD BIRTHDATE: [birth year] DOS: 07/22/2018 PULMONARY PROGRESS NOTE SUBJECTIVE: The patient noted fully back to the baseline mental status, improving, currently treated uncontrolled diabetes mellitus with all of the medical illnesses. The patient has been resolved. She remains afebrile. Cultures of the CSF were noted negative. OBJECTIVE: VITAL SIGNS: Normal temperature, respiratory rate 20, heart rate 96, blood pressure 135/82. Pulse oxygen saturation of the patient recorded as 96% saturation. HEENT: Moderate obese. NECK: Supple. CARDIOVASCULAR: S1, S2 is audible. LUNGS: Noted without any wheeze or crackles. ABDOMEN: Soft, nontender. Bowel sounds present. EXTREMITIES: Without any acute edema. LABORATORY DATA: BMP patient glucose noted elevated 420, remaining electrolytes normal including BUN, creatinine and CO2 level. CBC: WBC count 4.6, remaining CBC normal. IMPRESSION: Complete resolution of the diabetic ketoacidosis and noted uncontrolled diabetes mellitus, history of type 1 diabetes mellitus, change in mental status, all resolved. PLAN OF MANAGEMENT: Currently ongoing critical illness is noted. The patient at this time required further assessment. The long-term management of diabetes per primary care attending. The patient was also encouraged about assessment by the Endocrinology about the insulin pump infusion. Suggest the dose and to assess its proper functioning to prevent diabetic ketoacidosis attacks for future. Pulmonary sign off at this time, no further assessment will be needed from the pulmonary standpoint. [place], [place] PROGRESS NOTE NAME: MANUEL SCHAFER UNIT #: [id number] ROOM: [facility] DOCTOR: DOYLE SILVA MD BIRTHDATE: [birth year] DOYLE MORTENSEN MD CM:PNTRANS [id number] DOYLE POPE MD 07/22/18 2218 interface
--- NOTE | ~2018-07-19 | PR ---
[place], [place] PROGRESS NOTE NAME: MANUEL SCHAFER [facility] #: [id number] UNIT #: [id number] ROOM: 526 DOCTOR: CRISTINE ABREU MD BIRTHDATE: [birth year] DOS: 07/23/2018 SUBJECTIVE: The patient is feeling much better. OBJECTIVE: VITAL SIGNS: Blood pressure 124/60, breathing 20 times per minute, afebrile, heart rate of 64 beats per minute. GENERAL APPEARANCE: The patient is alert and oriented x 3, in no visible distress. HEENT AND NECK: Exam within normal limits. CARDIOVASCULAR SYSTEM: Heart rate is regular in rate and rhythm. S1 and S2 normally audible. LUNGS: Clear to auscultation. ABDOMEN: Soft, nontender. No obvious organomegaly. Bowel sounds are present. EXTREMITIES: Without significant cyanosis or edema. IMPRESSION: 1. Uncontrolled type 2 diabetes mellitus, now the patient is off the insulin pump and 50 units of Lantus insulin. Blood sugars are normalizing and now ranging between 123 to generally staying around 100-200 range, occasionally higher. I am adding 10 units of insulin with every meal because the patient does not eat regularly and she does skip meals. 2. Generalized weakness. The patient working with physical therapy. 3. Major depression, recurrent, moderate, treated with Cymbalta. 4. Adult attention deficit disorder treated with Adderall. 5. Diabetic ketoacidosis, resolved with treatment and the patient hydrated. CRISTINE ABREU MD CM:PNTRANS 17 57 CRISTINE ABREU MD 07/23/182057 interface
[~2018-07-19 16:12] MED LIST changes: +ADDERALL 20 MG20 MG PO; -ADDERALL15 MG PO; -CYMBALTA60 MG PO
[2018-07-19 16:18] VITALS: BP 123/63
[2018-07-19 17:05] LABS: ABG HCO3 4.2 mmol/l (22-26); ABG O2 SATURATION 98.1 % (95-97); ARTERIAL BLOOD GAS PCO2 17.5 mmHg (35-45)
[2018-07-19 17:06] LABS: ABG BASE EXCESS -27.5 mmol/L (-2.0-2.0)
[2018-07-19 17:07] LABS: ARTERIAL BLOOD GAS PH 7.007 (7.35-7.45)
[2018-07-19 17:13] LABS: BILIRUBIN NEGATIVE (NEGATIVE); BLOOD 2+ (NEGATIVE); CLARITY CLEAR (CLEAR); COLOR YELLOW (YELLOW); GLUCOSE 2+ (NEGATIVE); KETONE 3+ (NEGATIVE); PH 5.5 (5.0-9.0); SPECIFIC GRAVITY 1.025 (1.005-1.030); UROBILINOGEN 0.2 E.U./dl (0.2-1.0)
[2018-07-19 17:14] LABS: LEUKO ESTERASE NEGATIVE (NEGATIVE); NITRITE NEGATIVE (NEGATIVE)
[2018-07-19 17:17] LABS: BACTERIA 2+
[2018-07-19 17:18] LABS: MUCOUS TRACE
[2018-07-19] MEDS ORDERED: DEXTROAMPH SACC20 M1 PO (18:21)
[2018-07-19] MEDS ORDERED: CLARITIN10 MG PO (18:59)
[2018-07-19 19:05] VITALS: BP 127/67
[2018-07-19 19:20] LABS: HEMATOCRIT 43.1 % (37.0-47.0); HEMOGLOBIN 14.3 g/dl (12.0-16.0); MEAN CELL VOLUME 90.2 fl (81.0-99.0); MEAN CORPUSCULAR HGB 29.9 pg (27.0-31.0); MEAN CORPUSCULAR HGB CONC 33.2 g/dl (33.0-37.0); MEAN PLATELET VOLUME 10.3 fl (9.6-12.3); PLATELET COUNT AUTOMATED 310 10*3/uL (130-400); RED BLOOD COUNT 4.78 10*6/uL (4.10-5.10); RED CELL DISTRI WIDTH 12.2 % (0-14.5); WHITE BLOOD COUNT 21.4 10*3/uL (4.8-10.8)
[2018-07-19 19:30] LABS: ACT PARTIAL THROMBO TIME 26.8 SECONDS (20.8-31.5); INTERNATIONAL NORM RATIO 0.9 (2.0-3.5)
[2018-07-19 19:38] LABS: ALBUMIN 3.1 gm/dl (3.1-4.5); ALKALINE PHOSPHATASE 201 U/L (45-117); BUN 41 mg/dl (7-24); CHLORIDE 101 mmol/L (98-107); CREATININE 1.96 mg/dL (0.55-1.02); POTASSIUM 3.8 mmol/L (3.5-5.1); SGOT/AST 35 IU/L (3-35); SGPT/ALT 53 U/L (12-78); SODIUM 134 mmol/L (136-145); TOTAL PROTEIN 6.5 gm/dL (6.4-8.2)
[2018-07-19 19:39] LABS: TROPONIN I < 0.015 ng/ml (<0.045)
[2018-07-19 19:43] LABS: ATYPICAL LYMPHS 1 % (0-0); PLATELET SUFFICIENCY NORMAL (NORMAL); TOTAL CELLS COUNTED 100 #CELLS
[2018-07-19 19:44] LABS: STOMATOCYTE FEW
[2018-07-19 20:00] VITALS: BP 115/49
[2018-07-19 20:23] LABS: ABG HCO3 4.8 mmol/l (22-26); ABG O2 SATURATION 97.9 % (95-97); ARTERIAL BLOOD GAS PCO2 18.2 mmHg (35-45)
[2018-07-19 20:24] LABS: ABG BASE EXCESS -25.6 mmol/L (-2.0-2.0)
[2018-07-19 20:25] LABS: ARTERIAL BLOOD GAS PH 7.044 (7.35-7.45)
[2018-07-19 22:57] LABS: CREATININE 1.83 mg/dL (0.55-1.02); POTASSIUM 3.8 mmol/L (3.5-5.1)
[2018-07-20] VITALS: BP 118/57
[2018-07-20 00:29] LABS: CREATININE 1.73 mg/dL (0.55-1.02); POTASSIUM 4.3 mmol/L (3.5-5.1)
[2018-07-20 02:25] LABS: CREATININE 1.58 mg/dL (0.55-1.02); POTASSIUM 4.9 mmol/L (3.5-5.1)
[2018-07-20 04:00] VITALS: BP 111/42
[2018-07-20 04:15] LABS: HEMOGLOBIN 13.4 g/dl (12.0-16.0); MEAN CORPUSCULAR HGB 29.5 pg (27.0-31.0); MEAN CORPUSCULAR HGB CONC 34.4 g/dl (33.0-37.0); MEAN PLATELET VOLUME 9.9 fl (9.6-12.3); PLATELET COUNT AUTOMATED 223 10*3/uL (130-400); RED BLOOD COUNT 4.54 10*6/uL (4.10-5.10); RED CELL DISTRI WIDTH 12.3 % (0-14.5); WHITE BLOOD COUNT 13.9 10*3/uL (4.8-10.8)
[2018-07-20 04:16] LABS: MEAN CELL VOLUME 85.9 fl (81.0-99.0)
[2018-07-20 04:45] LABS: PLATELET SUFFICIENCY NORMAL (NORMAL); TOTAL CELLS COUNTED 100 #CELLS
[2018-07-20 05:12] LABS: CREATININE 1.64 mg/dL (0.55-1.02); PHOSPHOROUS 2.2 mg/dL (2.5-4.9); POTASSIUM 5.2 mmol/L (3.5-5.1)
[2018-07-20 06:25] LABS: CREATININE 1.63 mg/dL (0.55-1.02)
[2018-07-20 08:00] VITALS: BP 118/59
[2018-07-20 08:15] LABS: CREATININE 1.59 mg/dL (0.55-1.02); POTASSIUM 4.9 mmol/L (3.5-5.1)
[2018-07-20 09:38] LABS: URINE AMPHETAMINES > 1000 (1000ng/ml); URINE BARBITURATES < 200 (200ng/ml); URINE BENZODIAZEPINES < 200 (200ng/ml); URINE CANNABINOIDS (THC) < 50 (50ng/ml); URINE COCAINE < 300 (300ng/ml); URINE METHADONE < 300 (300ng/ml); URINE OPIATES < 300 (300ng/ml)
[2018-07-20 09:41] LABS: URINE PHENCYCLIDINE < 25 (25ng/ml)
[2018-07-20 10:26] LABS: CREATININE 1.51 mg/dL (0.55-1.02); POTASSIUM 4.6 mmol/L (3.5-5.1)
[2018-07-20 12:00] VITALS: BP 106/61
[2018-07-20 14:43] LABS: CSF RBC 2000 /uL; CSF WBC 5 /uL
[2018-07-20 14:44] LABS: CSF GLUCOSE 159 mg/dL (40-70); CSF TOTAL PROTEIN 32.9 mg/dL (15-45)
[2018-07-20 15:17] LABS: ABG O2 SATURATION 96.4 % (95-97); ARTERIAL BLOOD GAS PCO2 30.9 mmHg (35-45); ARTERIAL BLOOD GAS PH 7.333 (7.35-7.45); ARTERIAL BLOOD GAS PO2 81.2 mmHg (80-90)
[2018-07-20 15:18] LABS: ABG BASE EXCESS -8.4 mmol/L (-2.0-2.0)
[2018-07-20 15:26] LABS: CSF LYMPHOCYTES 29 % (40-80); CSF MONOCYTES 6 % (15-45)
[2018-07-20 15:27] LABS: CLARITY CLEAR
[2018-07-20 15:36] LABS: COLOR BLOODY
[2018-07-20 16:00] VITALS: BP 115/65
[2018-07-20 17:22] LABS: CREATININE 1.21 mg/dL (0.55-1.02); POTASSIUM 4.6 mmol/L (3.5-5.1)
[2018-07-20 20:00] VITALS: BP 116/68
[2018-07-21] VITALS: BP 105/48
[2018-07-21 02:07] LABS: CREATININE 1.22 mg/dL (0.55-1.02)
[2018-07-21 04:00] VITALS: BP 109/61
[2018-07-21 05:57] LABS: BUN 18 mg/dl (7-24); CHLORIDE 112 mmol/L (98-107); CREATININE 0.96 mg/dL (0.55-1.02); POTASSIUM 4.1 mmol/L (3.5-5.1); SODIUM 142 mmol/L (136-145)
[2018-07-21 06:03] LABS: BASO % 0.3 % (0.0-1.0); EOS % 0.4 % (1.0-4.0); HEMOGLOBIN 11.5 g/dl (12.0-16.0); LYMPH # 1.5 10*3/uL (1.3-4.4); LYMPH % 20.9 % (27.0-41.0); MEAN CELL VOLUME 84.4 fl (81.0-99.0); MEAN CORPUSCULAR HGB 29.9 pg (27.0-31.0); MEAN CORPUSCULAR HGB CONC 35.5 g/dl (33.0-37.0); MEAN PLATELET VOLUME 10.2 fl (9.6-12.3); MONO # 0.9 10*3/uL (0.1-1.0); MONO % 12.6 % (3.0-9.0); NEUT # 4.8 10*3/uL (2.3-7.9); NEUT % 65.5 % (47.0-73.0); RED BLOOD COUNT 3.84 10*6/uL (4.10-5.10); RED CELL DISTRI WIDTH 12.7 % (0-14.5); WHITE BLOOD COUNT 7.4 10*3/uL (4.8-10.8)
[2018-07-21 06:17] LABS: HEMATOCRIT 32.4 % (37.0-47.0); PLATELET COUNT AUTOMATED 146 10*3/uL (130-400)
[2018-07-21 08:00] VITALS: BP 97/64
[2018-07-21 10:06] LABS: BUN 16 mg/dl (7-24); CHLORIDE 110 mmol/L (98-107); CREATININE 0.96 mg/dL (0.55-1.02); SODIUM 141 mmol/L (136-145)
[2018-07-21 11:42] VITALS: BP 116/76
[2018-07-21 16:00] VITALS: BP 135/75
[2018-07-21 20:00] VITALS: BP 137/66
[2018-07-22] VITALS: BP 130/56
[2018-07-22 01:07] LABS: ADENOVIRUS Negative (Negative); INFLUENZA A Negative (Negative); INFLUENZA B Negative (Negative); METAPNEUMOVIRUS Negative (Negative); PARAINFLUENZA 1 Negative (Negative); PARAINFLUENZA 2 Negative (Negative); PARAINFLUENZA 3 Negative (Negative); RHINOVIRUS Negative (Negative); RSV A Negative (Negative); RSV B Negative (Negative)
[2018-07-22 04:00] VITALS: BP 140/62
[2018-07-22 06:53] LABS: BASO % 0.7 % (0.0-1.0); EOS # 0.1 10*3/uL (0.0-0.4); EOS % 1.1 % (1.0-4.0); HEMATOCRIT 34.6 % (37.0-47.0); LYMPH # 1.7 10*3/uL (1.3-4.4); LYMPH % 37.2 % (27.0-41.0); MEAN CELL VOLUME 85.6 fl (81.0-99.0); MEAN CORPUSCULAR HGB 29.7 pg (27.0-31.0); MEAN CORPUSCULAR HGB CONC 34.7 g/dl (33.0-37.0); MEAN PLATELET VOLUME 10.2 fl (9.6-12.3); MONO # 0.5 10*3/uL (0.1-1.0); MONO % 10.5 % (3.0-9.0); NEUT # 2.3 10*3/uL (2.3-7.9); NEUT % 50.1 % (47.0-73.0); PLATELET COUNT AUTOMATED 139 10*3/uL (130-400); RED BLOOD COUNT 4.04 10*6/uL (4.10-5.10); RED CELL DISTRI WIDTH 12.6 % (0-14.5); WHITE BLOOD COUNT 4.6 10*3/uL (4.8-10.8)
[2018-07-22 07:13] LABS: BUN 13 mg/dl (7-24); CHLORIDE 104 mmol/L (98-107); CREATININE 0.77 mg/dL (0.55-1.02); POTASSIUM 4.2 mmol/L (3.5-5.1); SODIUM 139 mmol/L (136-145)
[2018-07-22 08:00] VITALS: BP 125/60
[2018-07-22 12:00] VITALS: BP 135/82
[2018-07-22 16:00] VITALS: BP 135/84
[2018-07-22 17:07] LABS: CSF VDRL 006445 Non Reactive (Non Rea:<1:1)
[2018-07-22 20:00] VITALS: BP 127/73
[2018-07-23] VITALS: BP 133/74
[2018-07-23 04:00] VITALS: BP 111/61
[2018-07-23 04:05] LABS: HSV-2 DNA Negative (Negative)
[2018-07-23 08:00] VITALS: BP 138/78
[2018-07-23 12:00] VITALS: BP 124/60
[2018-07-23 16:00] VITALS: BP 143/71
[2018-07-23 20:00] VITALS: BP 148/80
[2018-07-24] VITALS: BP 143/74
[2018-07-24 08:00] VITALS: BP 151/76
[2018-07-24 12:00] VITALS: BP 145/68
[2018-07-24 16:00] VITALS: BP 140/75
[2018-07-24] MEDS ORDERED: Humalog SQ (18:23)
[2018-07-24] MEDS ORDERED: Lantus SC (18:23)
== END 2018-07-24 19:36 | disposition home or self-care (01) | DRG 637 ==
LOC: ED → ICCU 17:31 → EDHOLD 17:31 → ICCU 17:41 → 5E 07-23 15:03
PROVIDERS: Emergency Medicine; Internal Medicine; Internal Medicine Critical Care Medicine
PROC: 05HY33Z Insertion of Infusion Device into Upper Vein, Percutaneous Approach (ICD-10-PCS; principal; 2018-07-19)
PROC: B54MZZA Ultrasonography of Right Upper Extremity Veins, Guidance (ICD-10-PCS; 2018-07-19)
PROC: 009U3ZX Drainage of Spinal Canal, Percutaneous Approach, Diagnostic (ICD-10-PCS; 2018-07-20)
PROC: B01B1ZZ Fluoroscopy of Spinal Cord using Low Osmolar Contrast (ICD-10-PCS; 2018-07-20)
DX: E10.10 Type 1 diabetes mellitus with ketoacidosis without coma (principal); G93.41 Metabolic encephalopathy; J18.9 Pneumonia, unspecified organism; N39.0 Urinary tract infection, site not specified; F31.32 Bipolar disorder, current episode depressed, moderate; N17.9 Acute kidney failure, unspecified; Z68.31 Body mass index [BMI] 31.0-31.9, adult; F98.8 Other specified behavioral and emotional disorders with onset usually occurring in childhood and adolescence; J44.9 Chronic obstructive pulmonary disease, unspecified; E78.2 Mixed hyperlipidemia; E03.9 Hypothyroidism, unspecified; F17.210 Nicotine dependence, cigarettes, uncomplicated; E66.8 Other obesity; R62.7 Adult failure to thrive; N18.9 Chronic kidney disease, unspecified; E86.0 Dehydration; Z88.8 Allergy status to other drugs, medicaments and biological substances; Z91.041 Radiographic dye allergy status; Z79.899 Other long term (current) drug therapy; Z79.4 Long term (current) use of insulin; Z90.49 Acquired absence of other specified parts of digestive tract; Z98.51 Tubal ligation status

== ENCOUNTER 2018-07-24 22:42 | Emergency (ER) | payer MEDICARE, MEDICAID ==
[~2018-07-24] VITALS: Ht 165.1 cm; Wt 86.2 kg
[~2018-07-24 22:42] MED LIST changes: +CLARITIN10 MG PO; +Humalog SQ; +Lantus SC
[2018-07-24 22:45] VITALS: BP 135/78
[2018-07-24 23:30] LABS: BASO # 0.1 10*3/uL (0.0-0.1); BASO % 0.5 % (0.0-1.0); EOS # 0.1 10*3/uL (0.0-0.4); EOS % 0.8 % (1.0-4.0); HEMATOCRIT 41.8 % (37.0-47.0); HEMOGLOBIN 14.4 g/dl (12.0-16.0); LYMPH # 3.5 10*3/uL (1.3-4.4); LYMPH % 34.2 % (27.0-41.0); MEAN CELL VOLUME 86.5 fl (81.0-99.0); MEAN CORPUSCULAR HGB 29.8 pg (27.0-31.0); MEAN CORPUSCULAR HGB CONC 34.4 g/dl (33.0-37.0); MEAN PLATELET VOLUME 9.7 fl (9.6-12.3); MONO # 0.7 10*3/uL (0.1-1.0); MONO % 6.8 % (3.0-9.0); NEUT # 5.7 10*3/uL (2.3-7.9); NUCLEATED RED BLOOD CELL 0.3 % (0.0-0.0); PLATELET COUNT AUTOMATED 220 10*3/uL (130-400); RED BLOOD COUNT 4.83 10*6/uL (4.10-5.10); RED CELL DISTRI WIDTH 12.3 % (0-14.5); WHITE BLOOD COUNT 10.2 10*3/uL (4.8-10.8)
[2018-07-24 23:46] LABS: ALBUMIN 3.5 gm/dl (3.1-4.5); ALKALINE PHOSPHATASE 162 U/L (45-117); BUN 16 mg/dl (7-24); CHLORIDE 104 mmol/L (98-107); CREATININE 0.97 mg/dL (0.55-1.02); POTASSIUM 3.1 mmol/L (3.5-5.1); SGOT/AST 16 IU/L (3-35); SGPT/ALT 47 U/L (12-78); SODIUM 143 mmol/L (136-145); TOTAL PROTEIN 7.4 gm/dL (6.4-8.2)
== END 2018-07-25 00:12 | disposition home or self-care (01) ==
LOC: ED 22:42
PROVIDERS: Student in an Organized Health Care Education/Training Program
DX: E10.10 Type 1 diabetes mellitus with ketoacidosis without coma (principal); E10.649 Type 1 diabetes mellitus with hypoglycemia without coma; J44.9 Chronic obstructive pulmonary disease, unspecified; E78.5 Hyperlipidemia, unspecified; E03.9 Hypothyroidism, unspecified; Z79.4 Long term (current) use of insulin; Z79.899 Other long term (current) drug therapy; Z91.013 Allergy to seafood

== ENCOUNTER 2019-03-22 10:42 | Emergency (ER) | payer MEDICARE, MEDICAID ==
[~2019-03-22] VITALS: Wt 88.0 kg
[2019-03-22 10:44] VITALS: BP 141/70
[2019-03-22] MEDS ORDERED: ACULAR 0.5%3 ML OPH (11:12)
[2019-03-22] MEDS ORDERED: Tobrex Ophth S2.5 ML OPH (11:12)
== END 2019-03-22 11:12 | disposition home or self-care (01) ==
LOC: ED 10:42
DX: S05.01XA Injury of conjunctiva and corneal abrasion without foreign body, right eye, initial encounter (principal); F17.200 Nicotine dependence, unspecified, uncomplicated; Z91.041 Radiographic dye allergy status; Z91.013 Allergy to seafood; Z79.4 Long term (current) use of insulin; Z79.899 Other long term (current) drug therapy; Z90.49 Acquired absence of other specified parts of digestive tract; W50.4XXA Accidental scratch by another person, initial encounter; Y93.89 Activity, other specified; Y92.89 Other specified places as the place of occurrence of the external cause; Y99.8 Other external cause status

== ENCOUNTER 2019-08-25 15:56 | Emergency (ER) | payer MEDICARE, MEDICAID ==
[~2019-08-25] VITALS: Ht 165.1 cm; Wt 85.7 kg
[~2019-08-25 15:56] MED LIST changes: +ACULAR 0.5%3 ML OPH; +Tobrex Ophth S2.5 ML OPH
[2019-08-25 15:57] VITALS: BP 142/76
[2019-08-25] MEDS ORDERED: Motrin,Rufen800 MG PO (16:13)
[2019-08-25] MEDS ORDERED: OMNICEF300 MG PO (16:13)
[2019-08-25] MEDS ORDERED: ZYRTEC10 MG PO (16:13)
== END 2019-08-25 16:18 | disposition home or self-care (01) ==
LOC: ED 15:56
DX: H66.92 Otitis media, unspecified, left ear (principal); E11.9 Type 2 diabetes mellitus without complications; G89.29 Other chronic pain; E07.9 Disorder of thyroid, unspecified; F17.200 Nicotine dependence, unspecified, uncomplicated; Z91.041 Radiographic dye allergy status; Z91.013 Allergy to seafood; Z79.899 Other long term (current) drug therapy; Z79.2 Long term (current) use of antibiotics; Z79.4 Long term (current) use of insulin; Z90.49 Acquired absence of other specified parts of digestive tract

== ENCOUNTER 2019-11-26 21:18 | Inpatient (IN) | payer MEDICARE, MEDICAID ==
[~2019-11-26] VITALS: Ht 165.1 cm; Wt 89.9 kg
[~2019-11-26 21:18] MED LIST changes: +OMNICEF300 MG PO; +ZYRTEC10 MG PO
[2019-11-26 21:23] VITALS: BP 132/77
[2019-11-26 22:46] LABS: BASO % 0.5 % (0.0-1.0); EOS # 0.1 10*3/uL (0.0-0.4); EOS % 1.2 % (1.0-4.0); HEMATOCRIT 42.3 % (37.0-47.0); HEMOGLOBIN 14.1 g/dl (12.0-16.0); LYMPH # 0.5 10*3/uL (1.3-4.4); LYMPH % 12.2 % (27.0-41.0); MEAN CELL VOLUME 87.2 fl (81.0-99.0); MEAN CORPUSCULAR HGB 29.1 pg (27.0-31.0); MEAN CORPUSCULAR HGB CONC 33.3 g/dl (33.0-37.0); MEAN PLATELET VOLUME 10.6 fl (9.6-12.3); MONO # 0.6 10*3/uL (0.1-1.0); MONO % 14.9 % (3.0-9.0); NEUT # 2.9 10*3/uL (2.3-7.9); PLATELET COUNT AUTOMATED 149 10*3/uL (130-400); RED BLOOD COUNT 4.85 10*6/uL (4.10-5.10); RED CELL DISTRI WIDTH 12.8 % (0-14.5); WHITE BLOOD COUNT 4.1 10*3/uL (4.8-10.8)
[2019-11-26 23:02] LABS: ALBUMIN 3.4 gm/dl (3.1-4.5); ALKALINE PHOSPHATASE 173 U/L (45-117); BUN 14 mg/dl (7-24); CHLORIDE 104 mmol/L (98-107); CREATININE 0.88 mg/dL (0.55-1.02); LIPASE 78 U/L (73-393); POTASSIUM 4.2 mmol/L (3.5-5.1); SGOT/AST 22 IU/L (3-35); SGPT/ALT 37 U/L (12-78); SODIUM 133 mmol/L (136-145); TOTAL PROTEIN 6.7 gm/dL (6.4-8.2)
[2019-11-26 23:10] LABS: TROPONIN I < 0.015 ng/ml (<0.045)
[2019-11-26 23:19] LABS: ACT PARTIAL THROMBO TIME 26.9 SECONDS (20.0-32.1); INTERNATIONAL NORM RATIO 0.9 (2.0-3.5)
[2019-11-27 01:14] LABS: BILIRUBIN NEGATIVE (NEGATIVE); BLOOD NEGATIVE (NEGATIVE); CLARITY CLEAR (CLEAR); COLOR YELLOW (YELLOW); GLUCOSE 3+ (NEGATIVE); KETONE 3+ (NEGATIVE); LEUKO ESTERASE NEGATIVE (NEGATIVE); NITRITE NEGATIVE (NEGATIVE); RBC 0-2 rbc/hpf (0-2); UROBILINOGEN 0.2 E.U./dl (0.2-1.0); WBC 0-2 wbc/hpf (0-5)
[2019-11-27 01:40] VITALS: BP 121/64
[2019-11-27] MEDS ORDERED: CYMBALTA60 MG PO (01:57)
[2019-11-27] MEDS ORDERED: LANTUS SOL100 UNIT/1 SQ (01:59)
[2019-11-27] MEDS ORDERED: NOVOLOG10 ML SC (02:00)
[2019-11-27] MEDS ORDERED: ATIVAN0.5 MG PO (02:02)
[2019-11-27 08:00] VITALS: BP 115/70
[2019-11-27 16:00] VITALS: BP 130/80
[2019-11-27 23:50] VITALS: BP 128/69
[2019-11-28 05:20] VITALS: BP 119/68
[2019-11-28 08:00] VITALS: BP 96/57
[2019-11-28 16:00] VITALS: BP 107/65
[2019-11-28 20:00] VITALS: BP 98/58
[2019-11-28 20:05] VITALS: BP 102/54
[2019-11-29] VITALS: BP 117/60
[2019-11-29 08:00] VITALS: BP 112/56
== END 2019-11-29 14:10 | disposition home or self-care (01) | DRG 638 ==
LOC: ED 21:18 → 5E 11-27 00:14 → EDHOLD 11-27 00:14 → 5E 11-27 00:48
PROVIDERS: Nurse Practitioner Family; ADMIT Internal Medicine
DX: E10.65 Type 1 diabetes mellitus with hyperglycemia (principal); F33.1 Major depressive disorder, recurrent, moderate; J11.1 Influenza due to unidentified influenza virus with other respiratory manifestations; J44.9 Chronic obstructive pulmonary disease, unspecified; F98.8 Other specified behavioral and emotional disorders with onset usually occurring in childhood and adolescence; F41.1 Generalized anxiety disorder; E03.9 Hypothyroidism, unspecified; F17.200 Nicotine dependence, unspecified, uncomplicated; J40 Bronchitis, not specified as acute or chronic; Z91.013 Allergy to seafood; Z88.8 Allergy status to other drugs, medicaments and biological substances; Z90.49 Acquired absence of other specified parts of digestive tract; Z98.51 Tubal ligation status

== ENCOUNTER 2020-02-27 15:09 | Inpatient (IN) | payer MEDICARE, MEDICAID ==
[~2020-02-27] VITALS: Ht 165.1 cm; Wt 83.2 kg
[~2020-02-27 15:09] MED LIST changes: +ATIVAN0.5 MG PO; +CYMBALTA60 MG PO; +LANTUS SOL100 UNIT/1 SQ
[2020-02-27 15:17] VITALS: BP 114/86
[2020-02-27 17:19] LABS: BASO # 0.1 10*3/uL (0.0-0.1); BASO % 0.5 % (0.0-1.0); HEMATOCRIT 50.6 % (37.0-47.0); LYMPH # 1.3 10*3/uL (1.3-4.4); LYMPH % 6.3 % (27.0-41.0); MEAN CELL VOLUME 86.9 fl (81.0-99.0); MEAN CORPUSCULAR HGB 30.1 pg (27.0-31.0); MEAN CORPUSCULAR HGB CONC 34.6 g/dl (33.0-37.0); MEAN PLATELET VOLUME 10.8 fl (9.6-12.3); MONO # 1.2 10*3/uL (0.1-1.0); MONO % 5.8 % (3.0-9.0); NEUT # 17.8 10*3/uL (2.3-7.9); PLATELET COUNT AUTOMATED 371 10*3/uL (130-400); RED BLOOD COUNT 5.82 10*6/uL (4.10-5.10); RED CELL DISTRI WIDTH 12.6 % (0-14.5); WHITE BLOOD COUNT 20.5 10*3/uL (4.8-10.8)
[2020-02-27 17:29] LABS: ACT PARTIAL THROMBO TIME 29.6 SECONDS (20.0-32.1); INTERNATIONAL NORM RATIO 0.9 (2.0-3.5)
[2020-02-27 17:35] LABS: ALBUMIN 4.1 gm/dl (3.1-4.5); ALKALINE PHOSPHATASE 233 U/L (45-117); BUN 30 mg/dl (7-24); CHLORIDE 88 mmol/L (98-107); CREATININE 1.92 mg/dL (0.55-1.02); LIPASE 50 U/L (73-393); POTASSIUM 3.7 mmol/L (3.5-5.1); SGOT/AST 18 IU/L (3-35); SGPT/ALT 33 U/L (12-78); SODIUM 125 mmol/L (136-145); TOTAL PROTEIN 8.2 gm/dL (6.4-8.2)
[2020-02-27 17:36] LABS: TROPONIN I < 0.015 ng/ml (<0.045)
[2020-02-27 19:32] LABS: BILIRUBIN 2+ (NEGATIVE); BLOOD 1+ (NEGATIVE); CLARITY SL CLOUDY (CLEAR); COLOR YELLOW (YELLOW); GLUCOSE NEGATIVE (NEGATIVE); KETONE 3+ (NEGATIVE); LEUKO ESTERASE NEGATIVE (NEGATIVE); NITRITE NEGATIVE (NEGATIVE); UROBILINOGEN 0.2 E.U./dl (0.2-1.0)
[2020-02-27 19:35] LABS: BACTERIA 2+; MUCOUS 1+; RBC 0-2 rbc/hpf (0-2)
[2020-02-27 21:00] VITALS: BP 122/77
[2020-02-27 21:30] VITALS: BP 121/75
[2020-02-27 21:41] LABS: ALBUMIN 3.3 gm/dl (3.1-4.5); CREATININE 1.5 mg/dL (0.55-1.02); POTASSIUM 3.9 mmol/L (3.5-5.1)
[2020-02-28] VITALS: BP 120/68
[2020-02-28 00:37] LABS: BUN 25 mg/dl (7-24); CHLORIDE 103 mmol/L (98-107); CREATININE 1.15 mg/dL (0.55-1.02); POTASSIUM 4.4 mmol/L (3.5-5.1); SODIUM 135 mmol/L (136-145)
[2020-02-28 04:32] LABS: BASO % 0.3 % (0.0-1.0); EOS # 0.1 10*3/uL (0.0-0.4); EOS % 0.7 % (1.0-4.0); HEMATOCRIT 40.7 % (37.0-47.0); LYMPH # 2.6 10*3/uL (1.3-4.4); LYMPH % 25.3 % (27.0-41.0); MEAN CORPUSCULAR HGB 29.3 pg (27.0-31.0); MEAN CORPUSCULAR HGB CONC 35.1 g/dl (33.0-37.0); MONO # 1.2 10*3/uL (0.1-1.0); MONO % 11.4 % (3.0-9.0); NEUT # 6.3 10*3/uL (2.3-7.9); NEUT % 62.1 % (47.0-73.0); PLATELET COUNT AUTOMATED 263 10*3/uL (130-400); RED BLOOD COUNT 4.88 10*6/uL (4.10-5.10); RED CELL DISTRI WIDTH 12.5 % (0-14.5); WHITE BLOOD COUNT 10.1 10*3/uL (4.8-10.8)
[2020-02-28 04:50] LABS: MEAN CELL VOLUME 83.4 fl (81.0-99.0)
[2020-02-28 05:05] LABS: BUN 21 mg/dl (7-24); CHLORIDE 105 mmol/L (98-107); CREATININE 1.12 mg/dL (0.55-1.02); POTASSIUM 4.1 mmol/L (3.5-5.1); SODIUM 134 mmol/L (136-145)
[2020-02-28 08:00] VITALS: BP 115/52
[2020-02-28 08:38] LABS: CREATININE 1.18 mg/dL (0.55-1.02); POTASSIUM 3.8 mmol/L (3.5-5.1)
[2020-02-28 12:00] VITALS: BP 106/50
[2020-02-28 16:00] VITALS: BP 111/52
[2020-02-28 20:00] VITALS: BP 115/63
[2020-02-29] VITALS: BP 103/53
[2020-02-29 07:27] LABS: BUN 14 mg/dl (7-24); CHLORIDE 114 mmol/L (98-107); POTASSIUM 3.5 mmol/L (3.5-5.1); SODIUM 145 mmol/L (136-145)
[2020-02-29 07:30] LABS: CREATININE 0.64 mg/dL (0.55-1.02)
[2020-02-29 07:31] LABS: BASO % 0.5 % (0.0-1.0); EOS # 0.2 10*3/uL (0.0-0.4); EOS % 2.6 % (1.0-4.0); HEMATOCRIT 34.6 % (37.0-47.0); LYMPH # 2.6 10*3/uL (1.3-4.4); LYMPH % 42.3 % (27.0-41.0); MEAN CELL VOLUME 84.8 fl (81.0-99.0); MEAN CORPUSCULAR HGB 29.4 pg (27.0-31.0); MEAN CORPUSCULAR HGB CONC 34.7 g/dl (33.0-37.0); MEAN PLATELET VOLUME 10.3 fl (9.6-12.3); MONO # 0.6 10*3/uL (0.1-1.0); MONO % 9.5 % (3.0-9.0); NEUT # 2.8 10*3/uL (2.3-7.9); NEUT % 44.9 % (47.0-73.0); RED BLOOD COUNT 4.08 10*6/uL (4.10-5.10); RED CELL DISTRI WIDTH 12.8 % (0-14.5); WHITE BLOOD COUNT 6.2 10*3/uL (4.8-10.8)
[2020-02-29 08:00] VITALS: BP 122/53
[2020-02-29 08:39] LABS: PLATELET COUNT AUTOMATED 181 10*3/uL (130-400)
[2020-02-29 12:00] VITALS: BP 130/68
[2020-02-29 16:00] VITALS: BP 115/54
[2020-02-29 20:00] VITALS: BP 125/55
[2020-03-01] VITALS: BP 128/79
[2020-03-01 06:06] LABS: BUN 11 mg/dl (7-24); CHLORIDE 111 mmol/L (98-107); CREATININE 0.68 mg/dL (0.55-1.02); POTASSIUM 3.8 mmol/L (3.5-5.1); SODIUM 144 mmol/L (136-145)
[2020-03-01 06:12] LABS: BASO % 0.4 % (0.0-1.0); EOS # 0.2 10*3/uL (0.0-0.4); EOS % 3.7 % (1.0-4.0); HEMATOCRIT 34.2 % (37.0-47.0); LYMPH # 2.5 10*3/uL (1.3-4.4); LYMPH % 53.6 % (27.0-41.0); MEAN CELL VOLUME 86.6 fl (81.0-99.0); MEAN CORPUSCULAR HGB 29.4 pg (27.0-31.0); MEAN CORPUSCULAR HGB CONC 33.9 g/dl (33.0-37.0); MEAN PLATELET VOLUME 10.4 fl (9.6-12.3); MONO # 0.5 10*3/uL (0.1-1.0); MONO % 10.7 % (3.0-9.0); NEUT # 1.4 10*3/uL (2.3-7.9); NEUT % 31.4 % (47.0-73.0); PLATELET COUNT AUTOMATED 151 10*3/uL (130-400); RED BLOOD COUNT 3.95 10*6/uL (4.10-5.10); RED CELL DISTRI WIDTH 12.4 % (0-14.5); WHITE BLOOD COUNT 4.6 10*3/uL (4.8-10.8)
[2020-03-01 08:00] VITALS: BP 140/73
== END 2020-03-01 11:04 | disposition home or self-care (01) | DRG 637 ==
LOC: ED 15:09 → ICCU 20:26 → EDHOLD 20:26 → ICCU 20:41 → 4E 02-28 14:42
PROVIDERS: Nurse Practitioner Family; ADMIT Internal Medicine
DX: E11.10 Type 2 diabetes mellitus with ketoacidosis without coma (principal); N17.0 Acute kidney failure with tubular necrosis; E87.1 Hypo-osmolality and hyponatremia; F33.1 Major depressive disorder, recurrent, moderate; E86.0 Dehydration; E86.1 Hypovolemia; E11.42 Type 2 diabetes mellitus with diabetic polyneuropathy; E03.9 Hypothyroidism, unspecified; J44.9 Chronic obstructive pulmonary disease, unspecified; F90.9 Attention-deficit hyperactivity disorder, unspecified type; J30.1 Allergic rhinitis due to pollen; F17.200 Nicotine dependence, unspecified, uncomplicated; E11.649 Type 2 diabetes mellitus with hypoglycemia without coma; Z79.899 Other long term (current) drug therapy; Z79.4 Long term (current) use of insulin; Z90.49 Acquired absence of other specified parts of digestive tract; Z98.51 Tubal ligation status

== ENCOUNTER 2020-05-19 19:51 | Inpatient (IN) | payer MEDICARE, MEDICAID ==
[2020-05-19] VITALS (9 sets, daily range): BP systolic 100–152; BP diastolic 61–86
[~2020-05-19] VITALS: Ht 165.1 cm; Wt 86.8 kg
--- NOTE | 2020-05-19 20:06 | NUR ---
in to see pt at this time.
--- NOTE | 2020-05-19 20:07 | NUR ---
aware of pt very sweaty and lethargic and helped place pt into gown with Rissa linn.
[2020-05-19 20:28] LABS: BASO # 0.1 10*3/uL (0.0-0.1); BASO % 0.7 % (0.0-1.0); EOS # 0.2 10*3/uL (0.0-0.4); EOS % 2.1 % (1.0-4.0); HEMATOCRIT 44.7 % (37.0-47.0); LYMPH # 2.3 10*3/uL (1.3-4.4); MEAN CELL VOLUME 86.5 fl (81.0-99.0); MEAN CORPUSCULAR HGB 28.4 pg (27.0-31.0); MEAN CORPUSCULAR HGB CONC 32.9 g/dl (33.0-37.0); MEAN PLATELET VOLUME 10.1 fl (9.6-12.3); MONO % 13.2 % (3.0-9.0); NEUT # 3.7 10*3/uL (2.3-7.9); NEUT % 51.7 % (47.0-73.0); PLATELET COUNT AUTOMATED 266 10*3/uL (130-400); RED BLOOD COUNT 5.17 10*6/uL (4.10-5.10); RED CELL DISTRI WIDTH 12.1 % (0-14.5); WHITE BLOOD COUNT 7.2 10*3/uL (4.8-10.8)
--- NOTE | 2020-05-19 20:33 | NUR ---
In to see pt at this time,Pt is very lethargic and sweaty at this time.Pt will repsond to voice at this time and will not answer all questions at this time.
[2020-05-19 20:44] LABS: ALBUMIN 3.4 gm/dl (3.1-4.5); ALKALINE PHOSPHATASE 256 U/L (45-117); BUN 14 mg/dl (7-24); CHLORIDE 108 mmol/L (98-107); CREATININE 0.84 mg/dL (0.55-1.02); POTASSIUM 3.2 mmol/L (3.5-5.1); SGOT/AST 70 IU/L (3-35); SGPT/ALT 54 U/L (12-78); SODIUM 137 mmol/L (136-145)
--- NOTE | 2020-05-19 20:46 | NUR ---
aware of blood sugar at this time.
--- NOTE | 2020-05-19 20:50 | NUR ---
Suraj Pulido in to see pt at this time.Pt is unresponsive with stable vital signs at this time.Orders for amp of d50 at this time.
--- NOTE | 2020-05-19 20:55 | NUR ---
Whole amp of dextrose given at this time,Pt still unresposive at this time.
--- NOTE | 2020-05-19 21:00 | NUR ---
Pt also given glucan iv at this time.
--- NOTE | 2020-05-19 21:02 | NUR ---
D ten started at this time and whole amp given to pt of dextrose at this time.Narcan also given at this time,
--- NOTE | 2020-05-19 21:06 | NUR ---
Pts blood sugar is in the 300s at this time.Pt is still unresponsive at this time.Pt moved to room one.
--- NOTE | 2020-05-19 21:10 | NUR ---
Pt is more alert at this time,Pt states she did not take anything other then insulin today. aware and no walton needed at this time.
--- NOTE | 2020-05-19 21:30 | NUR ---
Pt agrees to speak with friend on phone names Tacos Parisi and pt she has been using suboxne for 5 years the last 2 years she has been getting this from the street at this time.Pt is alert and orientated and admits she wants to get help at this time.
--- NOTE | 2020-05-19 21:40 | NUR ---
aware that pt has been taking suboxone from the street and took dose today.
--- NOTE | 2020-05-19 22:00 | NUR ---
Pt becoming more drowsy and lethrgic at this time,Pt will respond to tacile stimuli at this time.Pt will then go back to sleep and start snoring at this time.Pupils are 2 and equal and reactive.
--- NOTE | 2020-05-19 22:10 | NUR ---
aware of pt becoming more lethargic at this time and orders at this time.
--- NOTE | 2020-05-19 22:16 | NUR ---
Another dose of narcan given at this time.Pt still drowsy.
--- NOTE | 2020-05-19 22:26 | NUR ---
in to see pt and orders for another dose at this time.
--- NOTE | 2020-05-19 22:30 | NUR ---
Narcan dose given at this time.
--- NOTE | 2020-05-19 22:40 | NUR ---
Suraj Pulido in to see pt.Pt orderd another dose of narcan at this time.Pt needs head ct before going to unit at this time.
--- NOTE | 2020-05-19 22:50 | NUR ---
PT takne to ct scan at this time.Pt moving legs around in scanner at this time,
--- NOTE | 2020-05-19 23:10 | NUR ---
Pt back from ct scan at this time.
--- NOTE | 2020-05-19 23:20 | NUR ---
Pt taken to icu at this time on monitor.
--- NOTE | 2020-05-19 23:30 | NUR ---
A 50, admitted to ICCU, under the services of GERRY Graham MD with a diagnosis of HYPOGLYCEMIA. Chief complaint is ACCIDENTALLY TOOK TOO MUCH INSULIN. Patient arrived via stretcher from ER. Monitor applied. Initial assessment completed. Vital signs taken and recorded. GERRY GRAHAM MD notified of admission to the unit. Orders received. See assessment for past medical history, medications and allergies. Patient and/or family oriented to unit. [facility] ICCU visitation policy reviewed. Clothing/patient valuable form completed. ANNETTE WARNER
--- NOTE | 2020-05-19 23:30 | NUR ---
Report given to Diandra sánchez.Pt is more alert and orientated at this time and sitting on bedside pancho.
[2020-05-20 00:25] LABS: BILIRUBIN NEGATIVE (NEGATIVE); BLOOD NEGATIVE (NEGATIVE); CLARITY CLEAR (CLEAR); COLOR YELLOW (YELLOW); GLUCOSE 2+ (NEGATIVE); KETONE NEGATIVE (NEGATIVE); SPECIFIC GRAVITY 1.005 (1.005-1.030); UROBILINOGEN 0.2 E.U./dl (0.2-1.0)
--- NOTE | 2020-05-20 00:25 | NUR ---
PT. UNSURE OF MEDS, WILL NEED TO VERIFY WITH PHARMACY IN AM.
[2020-05-20 00:27] LABS: LEUKO ESTERASE NEGATIVE (NEGATIVE); NITRITE NEGATIVE (NEGATIVE)
[2020-05-20 00:31] LABS: BACTERIA TRACE; RBC 0-2 rbc/hpf (0-2); WBC 0-2 wbc/hpf (0-5); YEAST 1+
[2020-05-20 00:35] LABS: URINE AMPHETAMINES > 1000 (1000ng/ml); URINE BARBITURATES < 200 (200ng/ml); URINE BENZODIAZEPINES < 200 (200ng/ml); URINE CANNABINOIDS (THC) < 50 (50ng/ml); URINE COCAINE < 300 (300ng/ml); URINE METHADONE < 300 (300ng/ml); URINE OPIATES < 300 (300ng/ml)
[2020-05-20 00:40] LABS: URINE PHENCYCLIDINE < 25 (25ng/ml)
--- NOTE | 2020-05-20 01:24 | NUR ---
2330 - PT. ALERT AND ORIENTED, MOVED SELF INTO BED UPON ADMISSION AND ANSWERED QUESTIONS APPROPRIATELY. 0000 - SITTING UP EATING BOXED LUNCH AFTER 0000 GLUC WAS 82. PT. REMAINS WARM AND DRY, ALERT AND ORIENTED. 0100 - PT. SLEEPING, AROUSES EASILY FOR ASSESSMENT AND TRANSFER TO CT FOR CTA. TRANSFERRED VIA WHEELCHAIR. PT. STATES SHE IS EXTREMELY TIRED. CURRENTLY TALKING ON CELL PHONE. CHRISTIANO MORA RN
--- NOTE | 2020-05-20 02:02 | NUR ---
PT'S BEDSIDE GLUC 339, D10 OFF. WILL CONTINUE TO MONITOR HOURLY. CHRISTIANO MORA RN
[2020-05-20 04:00] VITALS: BP 110/63
[2020-05-20] MEDS ORDERED: SIMVASTATIN40 MG PO (05:34)
[2020-05-20 05:55] LABS: BUN 12 mg/dl (7-24); CHLORIDE 106 mmol/L (98-107); CREATININE 0.85 mg/dL (0.55-1.02)
[2020-05-20 06:13] LABS: SODIUM 136 mmol/L (136-145)
[2020-05-20 06:18] LABS: POTASSIUM 4.7 mmol/L (3.5-5.1)
[2020-05-20 08:00] VITALS: BP 113/68
--- NOTE | 2020-05-20 08:49 | NUR ---
CONTROL AND RECOVERY COMBAT RESCUE CHRISTIANO NOTIFIED THAT PT HAS BEEN DOWNGRADED TO NONMONITORED STATUS.
[2020-05-20] MEDS ORDERED: SYMB160 INH (09:29)
--- NOTE | 2020-05-20 09:33 | NUR ---
I SPOKE WITH PHARMACIST AT [facility] AND MED REC UPDATED.
--- NOTE | 2020-05-20 10:30 | NUR ---
Salicylic Acid Blender in to talk to patient. Patient states lives at home with her 23 yo son. There are 0 steps in the home. There is an elevator. Physician: Dr. Jalil Queen Pharmacy: [facility] Home health services: none Patient's level of ADLs: INDEPENDENT Patient has working utilities: yes DME: none Follow-up physician's appointment after d/c: she prefers to make her own follow up appt after discharge Does patient want to access PORTAL?: no Discharge plan discussed with patient. She lives at home with her 23 yo son. She is independent in her ADLs and ambulation. Discussed home health care services and she declines. When medically stable she will be discharged to home. CM will continue to follow for any discharge planning needs. She states either her son or her sister will provide transportation on discharge. JETT DOTY
--- NOTE | 2020-05-20 11:11 | NUR ---
DR RENO NOTIFIED OF ELEVATED BSG OF 472. NEW ORDERS RECEIVED TO GIVE 20UNITS OF REGULAR INSULIN NOW AND START LANTUS DAILY
[2020-05-20 16:00] VITALS: BP 118/68
--- NOTE | 2020-05-20 19:30 | NUR ---
PT. REFUSED SET UP FOR BATH, STATED SHE WOULD LIKE TO DO IN THE AM IF POSSIBLE. CHRISTIANO MORA RN
--- NOTE | 2020-05-20 19:56 | NUR ---
PATIENT TRANSFERRED TO . VITAL SIGNS STABLE, ALL BELONGINGS SENT WITH PATIENT. REPORT GIVEN TO MINOR KILGORE RN. CHRISTIANO MORA RN
[2020-05-20 20:00] VITALS: BP 122/68
--- NOTE | 2020-05-20 22:24 | NUR ---
PATIENT INQUIRING ABOUT HER ATIVAN. SPOKE WITH DR. ABREU AT THIS TIME. NOTIFIED HIM WHAT SHE CAME IN WITH AND THAT SHE HAD ADMITTED TO TAKING SUBOXONE AND WAS OUT OF IT WHEN SHE FIRST CAME IN PUT PATIENT IS COMPLETELY ALERT AND AWAKE AT THIS TIME. DR. ABREU STATED IT WAS OK TO CONTINUE HER ATIVAN FOR SLEEP
--- NOTE | 2020-05-20 23:47 | NUR ---
24 HR chart check completed.
[2020-05-21] VITALS: BP 129/74
--- NOTE | 2020-05-21 02:23 | NUR ---
PATIENT SLEEPING, NO DISTRESS NOTED. CALL LIGHT WITHIN REACH, WILL MONITOR
[2020-05-21 06:19] LABS: BASO % 0.5 % (0.0-1.0); EOS # 0.2 10*3/uL (0.0-0.4); EOS % 2.9 % (1.0-4.0); HEMATOCRIT 43.9 % (37.0-47.0); LYMPH # 2.4 10*3/uL (1.3-4.4); LYMPH % 37.1 % (27.0-41.0); MEAN CELL VOLUME 87.5 fl (81.0-99.0); MEAN CORPUSCULAR HGB 28.3 pg (27.0-31.0); MEAN CORPUSCULAR HGB CONC 32.3 g/dl (33.0-37.0); MEAN PLATELET VOLUME 10.5 fl (9.6-12.3); MONO # 0.5 10*3/uL (0.1-1.0); NEUT # 3.3 10*3/uL (2.3-7.9); NEUT % 51.2 % (47.0-73.0); PLATELET COUNT AUTOMATED 209 10*3/uL (130-400); RED BLOOD COUNT 5.02 10*6/uL (4.10-5.10); RED CELL DISTRI WIDTH 12.4 % (0-14.5); WHITE BLOOD COUNT 6.5 10*3/uL (4.8-10.8)
[2020-05-21 06:43] LABS: CHLORIDE 105 mmol/L (98-107); POTASSIUM 4.5 mmol/L (3.5-5.1); SODIUM 136 mmol/L (136-145)
[2020-05-21 06:58] LABS: BUN 17 mg/dl (7-24); CREATININE 0.83 mg/dL (0.55-1.02)
[2020-05-21 08:00] VITALS: BP 105/61
--- NOTE | 2020-05-21 08:30 | NUR ---
Patient resting quietly with no c/o discomfort. Respirations easy and regular. Vital signs stable. No overt distress. FLACA PEREZ R
[2020-05-21 12:00] VITALS: BP 132/79
--- NOTE | 2020-05-21 12:03 | NUR ---
DR RENO CALLED AND NOTIFIED OF BSG OF 429/473. NOTIFIED OF COVERAGE GIVEN SHE STATES UNDERSTANDING AND ORDERS RECEIVED FOR JANUVIA DAILY.
[2020-05-21 16:00] VITALS: BP 120/80
--- NOTE | 2020-05-21 16:30 | NUR ---
Patient resting quietly with no c/o discomfort. Respirations easy and regular. BSG 81. No s/s of hypoglycemia noted. Dinner ordered. Vital signs stable. No overt distress. FLACA PEREZ R
--- NOTE | 2020-05-21 18:00 | NUR ---
PT BSG RECHECKED WITH RESULT OF 203. PT STILL DECLINES COVERAGE AND ORDERED INSULIN WITH MEALS. NO S/S OF HYPO/HYPERGLYCEMIA NOTED. CALL LIGHT IN REACH. WILL MONITOR.
[2020-05-21 20:00] VITALS: BP 104/62
--- NOTE | 2020-05-21 21:48 | NUR ---
PATIENT AT THIS TIME HAD A BLOOD SUGAR OF 233. SHE STATED THAT SHE WANTED TO HAVE SOMETHING TO EAT SHE DIDN'T WANT HER SUGAR TO BOTTOM OUT THROUGHOUT THE NIGHT BECAUSE THEY GAVE HER A NEW DIABETIC PILL AND EXTRA LANTUS TODAY. SHE STATED SHE WOULD LIKE HER SUGAR RECHECKED AFTER SHE EATS AND THAT SHE WILL DECIDE FROM THERE IF SHE WANTS INSULIN
--- NOTE | 2020-05-21 23:08 | NUR ---
PATIENTS SUGAR RECHECKED AT THIS TIME. BGM 232. PATIENT REQUESTED TO HAVE NO INSULIN TONIGHT. CALL LIGHT WITHIN REACH, WILL MONITOR
[2020-05-22] VITALS: BP 100/53
--- NOTE | 2020-05-22 06:20 | NUR ---
24 HR chart check completed.
[2020-05-22 06:37] LABS: ALBUMIN 2.8 gm/dl (3.1-4.5); ALKALINE PHOSPHATASE 182 U/L (45-117); BUN 19 mg/dl (7-24); CHLORIDE 105 mmol/L (98-107); CREATININE 0.77 mg/dL (0.55-1.02); POTASSIUM 4.2 mmol/L (3.5-5.1); SGOT/AST 11 IU/L (3-35); SGPT/ALT 32 U/L (12-78); SODIUM 136 mmol/L (136-145); TOTAL PROTEIN 6.3 gm/dL (6.4-8.2)
--- NOTE | 2020-05-22 06:56 | NUR ---
PATIENTS BLOOD SUGAR TAKEN FROM LAB WORK. GLUCOSE 293. PATIENT WILL TAKE INSULIN WHEN SHE HAS BREAKFAST
[2020-05-22 08:00] VITALS: BP 117/75
[2020-05-22] MEDS ORDERED: TRAD5TAB1 PO (08:39)
[2020-05-22] MEDS ORDERED: Lantus SC (08:39)
--- NOTE | 2020-05-22 08:47 | NUR ---
PT REQUESTED AND WAS MEDICATED WITH TYLENOL FOR C/O HEADACHE. CALL LIGHT IN REACH. WILL MONITOR
--- NOTE | 2020-05-22 09:06 | NUR ---
DEYA ARENAS IN TO SEE PT, DIABETIC INFO GIVEN TO PATIENT.
--- NOTE | 2020-05-22 09:10 | NUR ---
Nutritional Support Services Note: Instructed pt on 1800cal diabetic diet. Diet copy given to pt. She states she has the same diet at home and is pretty compliant to the diet. Has been a diabetic for 7 years. Stressed importance of three meals a day and healthy eating. Encourage a high protein night snack. Will follow if needed. No quesitons at this time. Pratima De La Torre Rdn Ld
--- NOTE | 2020-05-22 09:40 | NUR ---
MEDICATION EFFECTIVE PER PT. CALL LIGHT IN REACH. WILL MONITOR
--- NOTE | 2020-05-22 11:20 | NUR ---
GLUCOMETER GIVEN TO PATIENT.
[2020-05-22 12:00] VITALS: BP 122/62; BP 123/88
--- NOTE | 2020-05-22 13:53 | NUR ---
Discharge instructions reviewed with patient/family. Patient receptive and verbalizes understanding. Follow-up care arranged. Written instructions given to patient/family. FLACA PEREZ
== END 2020-05-22 13:58 | disposition home or self-care (01) | DRG 637 ==
LOC: ED 19:51 → EDHOLD 21:59 → ICCU 21:59 → 5E 21:59 → ICCU 22:24 → 5E 05-20 19:45
PROVIDERS: Emergency Medicine; ADMIT Internal Medicine
DX: E11.649 Type 2 diabetes mellitus with hypoglycemia without coma (principal); G93.41 Metabolic encephalopathy; J96.01 Acute respiratory failure with hypoxia; E46 Unspecified protein-calorie malnutrition; F31.9 Bipolar disorder, unspecified; E11.42 Type 2 diabetes mellitus with diabetic polyneuropathy; E87.6 Hypokalemia; R74.0 Nonspecific elevation of levels of transaminase and lactic acid dehydrogenase [LDH]; J44.9 Chronic obstructive pulmonary disease, unspecified; F90.9 Attention-deficit hyperactivity disorder, unspecified type; F41.1 Generalized anxiety disorder; Z68.31 Body mass index [BMI] 31.0-31.9, adult; Z90.49 Acquired absence of other specified parts of digestive tract; Z98.51 Tubal ligation status; Z71.6 Tobacco abuse counseling; Z79.899 Other long term (current) drug therapy

== ENCOUNTER 2020-06-16 23:57 | Emergency (ER) | payer MEDICARE, MEDICAID ==
[~2020-06-16] VITALS: Ht 165.1 cm; Wt 86.2 kg
[~2020-06-16 23:57] MED LIST changes: +SIMVASTATIN40 MG PO; +SYMB160 INH; +TRAD5TAB1 PO
[2020-06-17 00:03] VITALS: BP 124/69
[2020-06-17] MEDS ORDERED: CEPHALEXIN500 M1 PO (01:11)
[2020-06-17] MEDS ORDERED: ATARAX,VISTARIL10 MG PO (01:20)
== END 2020-06-17 01:35 | disposition home or self-care (01) ==
LOC: ED 23:57
DX: B86 Scabies (principal); L01.00 Impetigo, unspecified; E03.9 Hypothyroidism, unspecified; F31.9 Bipolar disorder, unspecified; E10.9 Type 1 diabetes mellitus without complications; E78.00 Pure hypercholesterolemia, unspecified; F17.200 Nicotine dependence, unspecified, uncomplicated; Z91.013 Allergy to seafood; Z79.899 Other long term (current) drug therapy

== ENCOUNTER → 2021-03-08 | Outpatient (CLI) | payer MEDICARE, MEDICAID ==
[~2021-03-08] MED LIST changes: +ATARAX,VISTARIL10 MG PO; +CEPHALEXIN500 M1 PO
[2021-03-08 13:36] LABS: BASO # 0.1 10*3/uL (0.0-0.1); BASO % 0.9 % (0.0-1.0); EOS # 0.2 10*3/uL (0.0-0.4); EOS % 3.1 % (1.0-4.0); HEMATOCRIT 44.9 % (37.0-47.0); LYMPH # 2.6 10*3/uL (1.3-4.4); LYMPH % 47.4 % (27.0-41.0); MEAN CELL VOLUME 85.5 fl (81.0-99.0); MEAN CORPUSCULAR HGB CONC 33.9 g/dl (33.0-37.0); MONO # 0.4 10*3/uL (0.1-1.0); MONO % 8.1 % (3.0-9.0); NEUT # 2.2 10*3/uL (2.3-7.9); NEUT % 40.3 % (47.0-73.0); PLATELET COUNT AUTOMATED 207 10*3/uL (130-400); RED BLOOD COUNT 5.25 10*6/uL (4.10-5.10); RED CELL DISTRI WIDTH 12.2 % (0-14.5); WHITE BLOOD COUNT 5.5 10*3/uL (4.8-10.8)
[2021-03-08 14:04] LABS: ALBUMIN 3.6 gm/dl (3.1-4.5); ALKALINE PHOSPHATASE 216 U/L (45-117); BUN 20 mg/dl (7-24); CHLORIDE 107 mmol/L (98-107); CREATININE 0.96 mg/dL (0.55-1.02); POTASSIUM 4.3 mmol/L (3.5-5.1); SGOT/AST 24 IU/L (3-35); SGPT/ALT 44 U/L (12-78); SODIUM 137 mmol/L (136-145); TOTAL PROTEIN 7.2 gm/dL (6.4-8.2)
[2021-03-08 14:06] LABS: BETA-HCG, QUANT < 1.0 mIU/mL (1-3)
[2021-03-09 12:06] LABS: HEP B CORE AB, IGM Negative (Negative); HEPATITIS B SURFACE AB Non Reactive (.); HEPATITIS B SURFACE AG Negative (Negative); HEPATITIS C VIRUS ANTIBODY <0.1 s/co (0.0-0.9)
[2021-03-12 00:06] LABS: HEPATITIS C QNT HCV Not Detected IU/mL (.)
== END | disposition home or self-care (01) ==
LOC: LAB 12:56
PROVIDERS: ATTEND Physician Assistant
DX: F11.10 Opioid abuse, uncomplicated (principal)

== ENCOUNTER 2021-08-16 08:56 | Emergency (ER) | payer MEDICARE, MEDICAID ==
[~2021-08-16] VITALS: Ht 165.1 cm; Wt 86.2 kg
[2021-08-16 09:00] VITALS: BP 144/73
[2021-08-16 09:36] LABS: BASO % 0.4 % (0.0-1.0); EOS # 0.2 10*3/uL (0.0-0.4); EOS % 2.7 % (1.0-4.0); HEMATOCRIT 45.5 % (37.0-47.0); LYMPH # 2.6 10*3/uL (1.3-4.4); LYMPH % 36.5 % (27.0-41.0); MEAN CELL VOLUME 83.3 fl (81.0-99.0); MEAN CORPUSCULAR HGB 28.8 pg (27.0-31.0); MEAN CORPUSCULAR HGB CONC 34.5 g/dl (33.0-37.0); MEAN PLATELET VOLUME 9.6 fl (9.6-12.3); MONO # 0.9 10*3/uL (0.1-1.0); MONO % 13.1 % (3.0-9.0); NEUT # 3.3 10*3/uL (2.3-7.9); NEUT % 47.2 % (47.0-73.0); PLATELET COUNT AUTOMATED 264 10*3/uL (130-400); RED BLOOD COUNT 5.46 10*6/uL (4.10-5.10); RED CELL DISTRI WIDTH 12.1 % (0-14.5); WHITE BLOOD COUNT 7.1 10*3/uL (4.8-10.8)
[2021-08-16 09:55] LABS: ALBUMIN 2.9 gm/dl (3.1-4.5); ALKALINE PHOSPHATASE 151 U/L (45-117); BUN 10 mg/dl (7-24); CHLORIDE 108 mmol/L (98-107); CREATININE 0.71 mg/dL (0.55-1.02); LIPASE 18 U/L (73-393); POTASSIUM 3.7 mmol/L (3.5-5.1); SGOT/AST 11 IU/L (3-35); SGPT/ALT 32 U/L (12-78); SODIUM 139 mmol/L (136-145); TOTAL PROTEIN 6.5 gm/dL (6.4-8.2)
[2021-08-16 10:04] LABS: TROPONIN I < 0.015 ng/ml (<0.045)
[2021-08-16 12:07] LABS: BILIRUBIN Negative (Negative); BLOOD Negative (Negative); CLARITY Clear (Clear); COLOR Yellow (Yellow); GLUCOSE Trace (Negative); KETONE 1+ (Negative); LEUKO ESTERASE Negative (Negative); NITRITE Negative (Negative); PH 6.5 (4.5-8.0); UROBILINOGEN 0.2 E.U./dl (0.0-1.0)
[2021-08-16 12:17] LABS: BACTERIA 2+; MUCOUS 3+; WBC 0-2 wbc/hpf (0-5)
[2021-08-16] MEDS ORDERED: LOMOTIL 2.5-0.1 EACH PO (12:36)
== END 2021-08-16 12:47 | disposition home or self-care (01) ==
LOC: ED 08:56
PROVIDERS: Emergency Medicine
DX: R19.7 Diarrhea, unspecified (principal); Z20.822 Contact with and (suspected) exposure to COVID-19; J44.9 Chronic obstructive pulmonary disease, unspecified; E10.9 Type 1 diabetes mellitus without complications; E78.5 Hyperlipidemia, unspecified; F17.200 Nicotine dependence, unspecified, uncomplicated; Z91.013 Allergy to seafood; Z79.899 Other long term (current) drug therapy

== ENCOUNTER 2023-07-08 17:50 | Emergency (ER) | payer MEDICARE, MEDICAID ==
[~2023-07-08] VITALS: Ht 165.1 cm; Wt 92.1 kg
[~2023-07-08 17:50] MED LIST changes: +AMOX-CLAV 875-1 EACH PO; +LOMOTIL 2.5-0.1 EACH PO; +NYST SUSP PO
[2023-07-08 18:16] VITALS: BP 142/87
[2023-07-08] MEDS ORDERED: VALTREX1000 MG PO (18:34)
[2023-07-08] MEDS ORDERED: HYDROXYZINE HCL25 MG PO (18:34)
== END 2023-07-08 18:35 | disposition home or self-care (01) ==
LOC: ED 17:50
DX: B02.9 Zoster without complications (principal); E78.00 Pure hypercholesterolemia, unspecified; F90.9 Attention-deficit hyperactivity disorder, unspecified type; F31.9 Bipolar disorder, unspecified; E11.10 Type 2 diabetes mellitus with ketoacidosis without coma; Z88.1 Allergy status to other antibiotic agents; Z91.013 Allergy to seafood; Z90.49 Acquired absence of other specified parts of digestive tract; Z98.51 Tubal ligation status; Z98.890 Other specified postprocedural states; F17.200 Nicotine dependence, unspecified, uncomplicated